=== PATIENT | female | born 1960 | race Caucasian/White ===

== ENCOUNTER → 2017-01-02 | Outpatient (CLI) | payer BC ==
[~2017-01-02] MED LIST: ACTOS 45 MG; AMR2 PO; ASPCH81 PO; AVN4 PO; CRS10 PO; GENUVIA PO; GLC500 PO; LISI-725 PO; MULT-506 PO
[2017-01-03 06:15] LABS: ESTIMATED AVERAGE GLUCOSE 206 mg/dl; HA1C FLAG Normal (Normal)
== END | disposition home or self-care (01) ==
LOC: C.LAB1850 15:36
PROVIDERS: ATTEND Nurse Practitioner Family
DX: E11.65 Type 2 diabetes mellitus with hyperglycemia (principal)

== ENCOUNTER → 2017-02-28 | Outpatient (CLI) | payer BC ==
--- NOTE | 2017-02-28 12:00 | DIAGNOSTIC IMAGING REPORT ---
R HAND MIN 3 VIEWS ROUTINE CLINICAL HISTORY: 56 years-old Female presenting with M79.644 pain in the right fingers. TECHNIQUE: Frontal, oblique, and lateral views of the right hand were obtained. COMPARISON: None. FINDINGS: Degenerative changes of the first carpometacarpal articulation suggested. No acute fracture or malalignment. No radiographic soft tissue abnormality. IMPRESSION: No acute osseous injury. Degenerative changes above. Electronically signed by: Isidro Romero M.D. 02/28/2017 11:59 AM Dictated Date/Time: 02/28/2017 11:53 AM
== END | disposition home or self-care (01) ==
LOC: C.RAD1850 11:36
PROVIDERS: ATTEND Physician Assistant
DX: M79.644 Pain in right finger(s) (principal)

== ENCOUNTER 2017-04-15 12:01 | Emergency (ER) | payer BC ==
[~2017-04-15] VITALS: Ht 167.6 cm; Wt 108.9 kg
[2017-04-15 12:08] VITALS: TEMP 37.3; Ht 167.6 cm; Wt 108.9 kg
[2017-04-15] MEDS ORDERED: INSU100I2 SQ (12:21)
[2017-04-15] MEDS ORDERED: HMLIS SQ ×2 (12:21)
[2017-04-15] MEDS ORDERED: CZR50 PO (12:21)
[2017-04-15] MEDS ORDERED: INSU1INJ41 SQ (12:21)
[2017-04-15] MEDS ORDERED: INSU1.2I SQ (12:21)
[2017-04-15] MEDS ORDERED: METF1000 PO (12:21)
[2017-04-15] MEDS ORDERED: HYDR5SYP11 PO (12:23)
[2017-04-15] MEDS ORDERED: ALBUT/IPRATROP 3MG/0.5MG NEB 3 ML VIAL INH STA (12:42)
--- NOTE | 2017-04-15 13:09 | DIAGNOSTIC IMAGING REPORT ---
CHEST 2 VIEWS ROUTINE CLINICAL HISTORY: cough FEVER COMPARISON STUDY: No previous studies for comparison. FINDINGS: The cardiac and mediastinal contours are normal. There is no evidence of focal pulmonary consolidation. There is no evidence of failure. No pleural effusions are visualized.[ A density at the level the left cardiophrenic angle, likely represents a combination of fat pad and atelectatic change. IMPRESSION: No active disease in the chest. Electronically signed by: Jesse Hernandez M.D. 04/15/2017 1:08 PM Dictated Date/Time: 04/15/2017 1:08 PM
[2017-04-15] MEDS ORDERED: IPRA1AER2 INH (14:01)
[2017-04-15] MEDS ORDERED: BENZ1CAP90 PO (14:01)
[2017-04-15] MEDS ORDERED: ONDA4TAB10 SL (14:01)
--- NOTE | 2017-04-15 14:04 | EMERGENCY ROOM VISIT NOTE ---
History First contact with patient: 12:19 Chief Complaint: SINUS CONGESTION/PRESSURE Stated Complaint: FEVER,HEADACHE,COUGH,POST NASAL DRIP Nursing Triage Summary: patient was treated for a sinus infection two weeks ago and was on antibiotics which were finished a week ago. felt better for two days then she was sick again. states she has congestion and head ache with cough. low grade fever. History of Present Illness The patient is a 57 year old female who presents to the Emergency Room with complaints of cough, runny nose, headache, low-grade fever, and sinus pressure. The patient states the symptoms have been going on for the past 2 days. She does report history of sinusitis for the past 3 months intermittently. She has been on 3 courses of antibiotics since December. The patient was most recently on an antibiotic for a sinus infection which she completed a week ago. She states she felt better for a few days, then began feeling sick again. She states the fever began 2 days ago, but states the highest documented temperature was 99.8F. She states for the past 2 days, her coughing has been worsening, and she is sneezing. She has been taking cough syrup with codeine on occasion to help her sleep at night. She states this does help minimally. She did have one episode of emesis associated with coughing. 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 The patient states her PCP does not want to continue to prescribe antibiotics due to possible C. difficile. The patient has not seen an ear nose and throat provider. The patient did receive a flu vaccination this year, and has not been exposed to the flu that she knows of. She denies any otalgia, significant sore throat, coughing up sputum or blood, purulent drainage from the nose, abdominal pain, chest pain, dyspnea, or other associated symptoms. Review of Systems A complete 10 point review of systems was reviewed with the patient with pertinent positives and negatives as per history of present illness. All else were negative. Social History Smoking Status: Former Smoker Current/Historical Medications Scheduled Aspirin (Aspirin Tab-Chewable *), 1 TAB PO DAILY Benzonatate (Tessalon Perles), 200 MG PO TID Insulin Glargine (Toujeo Solostar), 36 UNITS SQ HS Insulin Glargine-Lixisenatide (Soliqua 100/33 100-33 Unt-Mcg/ml), 60 UNITS SQ HS Insulin Human Lispro (Humalog Kwikpen), 8 UNITS SQ QAM Insulin Human Lispro (Humalog Kwikpen), 32 UNITS SQ HS Insulin Lispro (Human) (Humalog Kwikpen), 22 UNITS SQ QPM Ipratropium-Albuterol (Combivent Respimat), 1 PUFFS INH QID Losartan Potassium (Losartan Potassium), 50 MG PO DAILY Metformin Hcl (Glucophage), 1,000 MG PO BID Multivitamin (Multivitamin), 1 TAB PO DAILY Ondasetron Odt (Zofran Odt), 4 MG SL Q6H Rosuvastatin Calcium (Crestor *), 10 MG PO DAILY Scheduled PRN Hydrocodone W/ Homatropine (Hycodan 5/1.5MG 5 Ml), 1 TSP PO Q4H PRN for Cough Physical Exam Vital Signs Date Time Temp Pulse Resp B/P (MAP) Pulse Ox O2 Delivery O2 Flow Rate FiO2 04/15/17 14:16 103 22 176/95 96 04/15/17 12:11 95 Room Air 04/15/17 12:08 37.3 105 20 155/85 95 Room Air Physical Exam VITALS: Vitals are noted on the nurse's note and reviewed by myself. Vital signs stable. GENERAL: This is a 57-year-old white female, in no acute distress, nondiaphoretic, well-developed well-nourished. SKIN: The skin was without rashes, erythema, edema, or bruising. There is no tenting of the skin. Capillary reflex less than 2 seconds. HEAD: Normocephalic atraumatic. EARS: External auditory canals clear, tympanic membranes pearly smith without erythema or effusion bilaterally. EYES: Pupils equal round and reactive to light and accommodation. Conjunctivae without injection, sclerae without icterus. Extraocular movements intact. NOSE: Patent, turbinates without inflammation. Mild rhinorrhea noted. No purulent drainage. Sinus tenderness on the right. MOUTH: Mucous membranes moist. Tonsils are not enlarged. Pharynx without erythema or exudate. Uvula midline. Airway patent. Tongue does not deviate. NECK: Supple without nuchal rigidity. No lymphadenopathy. No thyromegaly. Cervical spine is nontender. No JVD. HEART: Regular rate and rhythm without murmurs gallops or rubs. LUNGS: Clear to auscultation bilaterally without wheezes, rales or rhonchi. The patient does have a raspy sounding cough, and is finding it difficult to stop coughing. No dullness to percussion. No retractions or accessory muscle use. ABDOMEN: Positive bowel sounds x 4. Normal tympanic percussion. Soft, nontender, without masses or organomegaly. Shook sign negative. No guarding or rebound tenderness. MUSCULOSKELETAL: No muscle atrophy, erythema, or edema noted. Full range of motion without joint tenderness in all extremities. No tenderness to palpation. Normal gait. Strength 5/5 throughout. NEURO: Patient was alert and oriented to person place and time. Normal sensation to light and sharp touch. Deep tendon reflexes 2+ throughout. No focal neurological deficits. Medical Decision & Procedures ER Provider Diagnostic Interpretation: Labs positive for influenza A, negative for influenza B. CHEST 2 VIEWS ROUTINE CLINICAL HISTORY: cough FEVER COMPARISON STUDY: No previous studies for comparison. FINDINGS: The cardiac and mediastinal contours are normal. There is no evidence of focal pulmonary consolidation. There is no evidence of failure. No pleural effusions are visualized.[ A density at the level the left cardiophrenic angle, likely represents a combination of fat pad and atelectatic change. IMPRESSION: No active disease in the chest. Electronically signed by: Jesse Hernandez M.D. 04/15/2017 1:08 PM Dictated Date/Time: 04/15/2017 1:08 PM Laboratory Results Test 04/15/17 12:45 Influenza Type A Antigen POS for Influ A (NEG) Influenza Type B Antigen Neg for Influ B (NEG) Medications Administered Medications (Trade) Dose Ordered Sig/Peggy Route Start Time Stop Time Status Last Admin Dose Admin Albuterol/ Ipratropium (Duoneb) 3 ml NOW STAT INH 04/15/17 12:42 04/15/17 12:43 DC 04/15/17 12:48 3 ML Medical Decision The patient was seen environment as above. She has been ill for several months , but states symptoms began worsening approximately 2 days ago. The patient has had no imaging completed. She did receive a flu vaccination, however her symptoms do sound very suspicious for influenza, which could be why her symptoms worsened after antibiotics. Chest x-ray was insignificant for ammonia. Influenza testing was positive for influenza type A. I did discuss these findings with the patient at bedside. I discussed with her that influenza is viral and antibiotics will not treat viral illness. I provided her with a nebulizer treatment, and she states she was feeling significantly better. The patient was provided with an inhaler and cough medication to help with her symptoms. I had a long discussion with her at bedside regarding the use of OTC medications for her symptoms. The patient was in agreement with the assessment and plan. I did discuss follow-up with her PCP due to the facial tenderness. I encouraged her to seek care by an ear nose and throat provider especially for her chronic sinusitis. The patient was encouraged to return to the emergency department for. The drainage from the nose or sinuses, worsening sinus pressure, or fever which does not respond to OTC medication. Differential diagnosis includes acute sinusitis, influenza, bronchitis, pneumonia, upper respiratory infection, abscess of sinus cavity, malignancy, and others Medication Reconcilliation Current Medication List: was personally reviewed by me Blood Pressure Screening Patient's blood pressure: Elevated blood pressure Blood pressure disposition: Elevated BP felt to be situational Impression Primary Impression: Influenza A Departure Information Dispostion Home / Self-Care Condition GOOD Prescriptions Ondasetron Odt (ZOFRAN ODT) 4 Mg Tab 4 MG SL Q6H for Nausea, #6 TAB Prov: Dora Leo PA-C 04/15/17 Ipratropium-Albuterol (COMBIVENT RESPIMAT) 1 Aer Aer 1 PUFFS INH QID, #1 INH Prov: Dora Leo PA-C 04/15/17 Benzonatate (Tessalon Perles) 200 Mg Cap 200 MG PO TID for 10 Days, #30 CAP Prov: Dora Leo PA-C 04/15/17 Referrals Teena Tracy M.D. (PCP) Patient Instructions ED Flu, My [facility] Additional Instructions You were seen and evaluated in the emergency department today for a influenza. This is viral in nature. As discussed, antibiotics will not treat viral illness. You have been provided with a combivent inhaler to use for wheezing or difficulty breathing. Use this inhaler 1 puffs every 6 hours as needed. If you find that your symptoms are not improving with the use of the inhaler, or if you find that you need to use the inhaler longer than 1 week, return to the ED or follow-up with your PCP. You have been given benzonatate (Tessalon Pearles) to be used for coughing. These should be taken 1 capsule up to 3 times per day as needed for coughing. Do not take this medication more than prescribed. You may use this medication in addition to OTC cough medications. You have been prescribed Zofran to be used for any nausea or vomiting. Take as prescribed. For your sore throat, you may use a 1:1 mixture of liquid Benadryl and liquid Maalox. Gargle and spit this mixture. It will help to soothe the throat and provide some relief. Drink warm tea with honey and lemon, as this will also help to soothe the throat. Gargle with salt water frequently. As discussed, you should take OTC Mucinex and/or Sudafed for your symptoms. Please do not exceed the recommended daily dosages. Ibuprofen(Motrin, Advil) may be used for fever or pain. Use 600mg every six hours as needed. Take with food. Avoid using more than 2400mg in a 24 hour period. Do not use 2400mg per day for more than three consecutive days without physician direction. Prolonged inappropriate use can lead to stomach upset or ulcers. This medication will help with the swelling in your sinuses. (AND/OR) Acetaminophen(Tylenol) may be used for fever or pain. Use 1000mg every six hours as needed. Avoid using more than 3000mg in a 24 hour period. For congestion, you may use Flonase OTC. You may want to consider zinc, echinacea, and vitamin C to help boost your immunity. Please get plenty of rest and drink plenty of fluids. Please return or follow-up with your PCP in 1 week if you are not experiencing any improvement in your symptoms. As discussed, you can expect to feel ill for at least 10 days. Please avoid interaction with other people while ill, as you can easily spread influenza.Please especially avoid contact with immunocompromised patients, women, or small children. Return to the emergency department for coughing up blood, difficulty breathing, chest pain, worsening symptoms, or for other concerns. Work Instructions Return To Work: 1 week
[2017-04-15 14:16] VITALS: BP 176/95; PULSE 103; O2SAT 96
== END 2017-04-15 14:17 | disposition home or self-care (01) ==
LOC: C.EDB 12:02 → C.EDD 14:17
DX: J11.1 Influenza due to unidentified influenza virus with other respiratory manifestations (principal); R51 Headache; J32.9 Chronic sinusitis, unspecified; Z79.82 Long term (current) use of aspirin; Z79.4 Long term (current) use of insulin; Z79.84 Long term (current) use of oral hypoglycemic drugs

== ENCOUNTER → 2017-12-03 | Outpatient (CLI) | payer OTHER ==
[~2017-12-03] MED LIST changes: -ACTOS 45 MG; -AMR2 PO; -AVN4 PO; +CZR50 PO; -GENUVIA PO; -GLC500 PO; +HMLIS SQ; +HYDR5SYP11 PO; +INSU1.2I SQ; +INSU100I2 SQ; +INSU1INJ41 SQ; -LISI-725 PO; +METF1000 PO
[2017-12-03 13:47] LABS: BLOOD UREA NITROGEN 16 mg/dl (7-18); CALCIUM 9.4 mg/dl (8.5-10.1); CARBON DIOXIDE 23 mmol/L (21-32); CREATININE 1.01 mg/dl (0.60-1.20); GLUCOSE 157 mg/dl (70-99); POTASSIUM 4.4 mmol/L (3.5-5.1); SODIUM 139 mmol/L (136-145)
== END | disposition home or self-care (01) ==
LOC: C.LAB1850 11:38
PROVIDERS: ATTEND Nurse Practitioner Family
DX: E78.5 Hyperlipidemia, unspecified (principal); E11.65 Type 2 diabetes mellitus with hyperglycemia

== ENCOUNTER 2022-02-07 23:17 | Inpatient (IN) ==
[2022-02-08] LABS: Basophils # (auto) 0.08 K/uL (0-0.2); Basophils % (auto) 0.6 %; Eosinophils # (auto) 0.05 K/uL (0-0.50); Eosinophils % (auto) 0.3 %; Hematocrit (blood only) 38.6 % (34.1-44.9); Hemoglobin 12.5 g/dl (12.0-16.0); Immature Granulocytes # (auto) 0.07 K/uL (0.00-0.02); Immature Granulocytes % (auto) 0.5 %; Lymphocytes # (auto) 1.68 K/uL (1.2-3.4); Lymphocytes % (auto) 11.6 %; Mean Corpuscular Hemoglobin 26.7 pg (25.0-34.0); Mean Corpuscular Hgb Conc 32.4 g/dL (32.0-36.0); Mean Corpuscular Volume 82.3 fL (80.0-100.0); Mean Platelet Volume 9.6 fL (9.4-12.3); Monocytes % (auto) 5.5 %; Neutrophils # (auto) 11.82 K/uL (1.4-6.5); Neutrophils % (auto) 81.5 %; Platelet Count 117 K/uL (130-400); RDW Coefficient of Variation 14.9 % (11.5-14.5); RDW Standard Deviation 44.5 fL (36.4-46.3); Red Blood Count 4.69 M/uL (3.93-5.22)
[2022-02-08 00:06] LABS: iSTAT Creatinine 1.5 mg/dl (0.6-1.3); iSTAT Hemoglobin 12.9 g/dl (12.0-16.0); iSTAT Ionized Calcium 1.27 mmol/l (1.12-1.32); iSTAT Potassium 4.6 mmol/L (3.3-5.0)
[2022-02-08 00:19] LABS: Albumin Globulin Ratio 1.4 (0.9-2); Albumin Level 4.2 gm/dl (3.4-5.0); BUN Creatinine Ratio 14.8 (10-20); Bilirubin,Total 0.4 mg/dl (0.2-1.0); Calcium 9.8 mg/dl (8.5-10.1); Creatinine Clr Calc Pharmacy 52.6 ml/min; Est GFR (Non-African American) 36.3 ml/min; Globulin 2.9 gm/dl (2.5-4.0); Potassium 4.4 mmol/L (3.5-5.1); Total Protein 7.1 gm/dl (6.0-8.3)
[2022-02-08 01:33] LABS: INR 1.1 (0.9-1.1); Prothrombin Time 11.5 Seconds (9.0-12.0)
[2022-02-08 01:54] LABS: Influenza A virus by PCR Negative (Neg); Influenza B virus by PCR Negative (Neg); RSV by PCR Negative (Neg); SARS CoV2 RNA(COVID-19) InHosp NEGATIVE (Negative)
[2022-02-08] MEDS ORDERED: ACETAMINOPHEN 1,000 MG/100 ML VIAL IV STA (03:34)
[2022-02-08] MEDS ORDERED: SODIUM CHLORIDE 0.9% 1000ML 1,000 ML IV SCH (03:45)
[2022-02-08] MEDS ORDERED: OPTIRAY 320 500ml IV ONE (04:09)
[2022-02-08] MEDS ORDERED: Heparin IV Adult Wt-Based Standard WITH Bolus Protocol IV STA (05:51)
--- NOTE | 2022-02-08 05:53 | Emergency Department Note ---
History of Present Illness General Chief complaint: Illness Stated complaint: Dizziness, Hyperglycemia Time Seen by Provider: 02/08/22 03:04 Source: patient Mode of arrival: ambulatory Limitations: no limitations History of Present Illness Provider complaint: Fatigue, cough, flulike symptoms Maximum Pain Intensity: 5 This is a 61-year-old female presents emergency department complaining of flulike symptoms, fatigue, cough, shortness of breath and chest pain. Patient states over the weekend she began having fevers, chills, fatigue, myalgia and thought she was coming down with an illness. She states she had accompanying nasal congestion, rhinorrhea, mild sore throat. She states tonight she went to get in the shower and began having shortness of breath, chest pain, nausea, and felt as though she was going to pass out. She states she got out of the shower and lay down and the nausea and dizziness improved, however she still felt chest pain and shortness of breath. On arrival here patient was noted to be hypoxic and tachycardic and was placed in room on oxygen. Patient admits to likely positive sick contacts recently. Patient states she has previously had "a mild ID". 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 She states since being sick her blood sugars have been high. No prior history of asthma or COPD. Home Medications Medication Instructions Recorded Confirmed Type aspirin 81 mg tablet,delayed 81 mg PO HS 12/31/18 02/08/22 History release escitalopram oxalate 10 mg tablet 10 mg PO HS 12/31/18 02/08/22 History Dexcom G6 Client Business Manager (blood-glucose #1 ea 09/17/19 02/02/22 Rx meter,continuous) cyanocobalamin (vitamin B-12) 1,000 mcg PO QAM 09/29/20 02/08/22 History 1,000 mcg tablet (Vitamin B-12) Dexcom G6 Transmitter #1 ea 02/21/21 02/02/22 Rx (blood-glucose transmitter) metoprolol succinate 25 mg capsule 25 mg PO DAILY 04/14/21 02/08/22 History sprinkle, ext. release 24 hr rosuvastatin 5 mg tablet 5 mg PO HS #90 tabs 04/25/21 02/08/22 Rx Dexcom G6 Sensor (blood-glucose #3 ea 05/16/21 02/02/22 Rx sensor) insulin degludec 200 unit/mL (3 90 unit (0.45 mL) subcut HS #18 mL 07/18/21 02/08/22 Rx mL) subcutaneous pen (Tresiba FlexTouch U-200 insulin) pen needle, diabetic 32 gauge x #200 ea 07/21/21 02/02/22 Rx 5/32" (BD Ultra-Fine Jessi Pen Needle) fenofibrate nanocrystallized 145 145 mg PO DAILY #90 tabs 09/02/21 02/08/22 Rx mg tablet levothyroxine 100 mcg tablet 100 mcg PO DAILY #30 tabs 10/31/21 02/08/22 Rx insulin NPH isoph U-100 human 100 30 unit (0.3 mL) subcut QAM 30 11/07/21 Rx unit/mL (3 mL) subcutaneous pen days #15 mL (Novolin N Flexpen) Accu-Chek Fastclix Lancet Drum #102 ea 11/21/21 02/02/22 Rx (lancets) liraglutide 0.6 mg/0.1 mL (18 mg/3 1.2 mg (0.2 mL) subcut DAILY #6 mL 01/09/22 02/08/22 Rx mL) subcutaneous pen injector (Victoza 2-Marshal) metformin 500 mg tablet,extended 1,000 mg PO BID #180 tabs 02/01/22 02/08/22 Rx release 24 hr blood sugar diagnostic (Accu-Chek #100 ea 02/02/22 02/02/22 Rx Guide test strips) losartan 100 mg tablet 100 mg PO DAILY #30 tabs 02/02/22 02/08/22 Rx insulin aspart U-100 100 unit/mL 100 unit subcut DIRECTED 02/08/22 02/08/22 History (3 mL) subcutaneous pen (Novolog Flexpen U-100 Insulin aspart) Allergies Allergy/AdvReac Type Severity Reaction Status Date / Time latex Allergy Intermediate contact Verified 02/08/22 02:03 dermatitis Penicillins Allergy Mild Rash Verified 02/08/22 02:03 Past Med/Surg History Medical History Depression Diabetes type 2, uncontrolled DVT (deep venous thrombosis) hx of left leg 2016--unknown cause Dyslipidemia HTN (hypertension) Hypertriglyceridemia Hypothyroidism Microalbuminuria due to type 2 diabetes mellitus Morbid obesity with BMI of 40.0-44.9, adult Obesity Osteoarthritis Postmenopausal status (age-related) (natural) Right knee DJD Surgical History H/O section (~1996) H/O eye surgery orbital fx repair--hardware in place around right eye History of colonoscopy History of wisdom tooth extraction Hx of cholecystectomy Family History Grandfather (Paternal) Colorectal cancer Brother Diabetes Grandfather No problems noted. Father Diabetes Mother Ovarian cancer, Onset Age: 60 still living Other FHx: hypertension Family history of diabetes mellitus No family history of adverse response to anesthesia Denies family history of Breast cancer Social History Smoking Status: Former smoker Second Hand Exposure: No; Hx Alcohol Use: No Hx Substance Use: No Preferred Language: German Communication Ability: Effective Engineer And Geologist Required: No Beliefs That Will Affect Care: None marital status: Current Living Situation: Spouse Current Living Situation Comment: Lives with and son Feels Safe at Home: Yes Assistive Devices: Glasses Review of Systems A total of 10 systems reviewed and were otherwise negative All systems reviewed & are unremarkable except as noted in HPI & below Physical Exam Vital Signs Vital Signs - 24 hr 02/07/22 23:33 02/07/22 23:11 02/08/22 01:13 Temperature 36.8 C Temperature Source Oral Pulse Rate 116 H 118 H Pulse Rate from SpO2 Sensor Pulse Rhythm Regular Respiratory Rate 24 21 Respiratory Effort / Characteristics Short of Breath Respiratory Depth Shallow Respiratory Pattern Rapid/Shallow Blood Pressure 122/82 Blood Pressure Mean 95 Pulse Oximetry 91 84 L 92 Oxygen Delivery Method Nasal Cannula Room Air Nasal Cannula Oxygen Flow Rate 2 3 Sepsis Recent Fever Within 48 Hours Yes Sepsis New/Unexplained Change in Mental Status No Sepsis Action Taken by Nursing No Action Required 02/07/22 23:28 02/07/22 23:30 02/07/22 23:50 Temperature Temperature Source Pulse Rate 120 H 118 H 119 H Pulse Rate from SpO2 Sensor Pulse Rhythm Respiratory Rate 13 21 26 H Respiratory Effort / Characteristics Respiratory Depth Respiratory Pattern Blood Pressure 114/89 106/74 108/66 Blood Pressure Mean 97 84 80 Pulse Oximetry 92 91 91 Oxygen Delivery Method Nasal Cannula Oxygen Flow Rate 2 Sepsis Recent Fever Within 48 Hours Sepsis New/Unexplained Change in Mental Status Sepsis Action Taken by Nursing 02/08/22 00:00 02/08/22 00:10 02/08/22 00:40 Temperature Temperature Source Pulse Rate 118 H 115 H 112 H Pulse Rate from SpO2 Sensor Pulse Rhythm Respiratory Rate 26 H 23 22 Respiratory Effort / Characteristics Respiratory Depth Respiratory Pattern Blood Pressure 104/73 122/82 110/88 Blood Pressure Mean 83 95 95 Pulse Oximetry 90 90 87 L Oxygen Delivery Method Nasal Cannula Oxygen Flow Rate 2 Sepsis Recent Fever Within 48 Hours Sepsis New/Unexplained Change in Mental Status Sepsis Action Taken by Nursing 02/08/22 00:50 02/08/22 01:00 02/08/22 01:10 Temperature Temperature Source Pulse Rate 112 H 110 H 110 H Pulse Rate from SpO2 Sensor 110 H Pulse Rhythm Respiratory Rate 22 26 H 20 Respiratory Effort / Characteristics Respiratory Depth Respiratory Pattern Blood Pressure 98/78 L 93/76 L Blood Pressure Mean 84 81 Pulse Oximetry 90 88 L 92 Oxygen Delivery Method Nasal Cannula Nasal Cannula Oxygen Flow Rate 2 2 Sepsis Recent Fever Within 48 Hours Sepsis New/Unexplained Change in Mental Status Sepsis Action Taken by Nursing 02/08/22 01:20 02/08/22 01:31 02/08/22 01:40 Temperature Temperature Source Pulse Rate 108 H 110 H 107 H Pulse Rate from SpO2 Sensor Pulse Rhythm Respiratory Rate 21 23 24 Respiratory Effort / Characteristics Respiratory Depth Respiratory Pattern Blood Pressure 112/82 117/81 101/72 Blood Pressure Mean 92 93 81 Pulse Oximetry 92 90 91 Oxygen Delivery Method Nasal Cannula Nasal Cannula Nasal Cannula Oxygen Flow Rate 3 3 3 Sepsis Recent Fever Within 48 Hours Sepsis New/Unexplained Change in Mental Status Sepsis Action Taken by Nursing 02/08/22 01:50 02/08/22 02:00 02/08/22 02:10 Temperature Temperature Source Pulse Rate 106 H 105 H 103 H Pulse Rate from SpO2 Sensor Pulse Rhythm Respiratory Rate 24 23 20 Respiratory Effort / Characteristics Respiratory Depth Respiratory Pattern Blood Pressure 127/80 106/62 98/84 L Blood Pressure Mean 95 76 88 Pulse Oximetry 91 94 94 Oxygen Delivery Method Nasal Cannula Nasal Cannula Nasal Cannula Oxygen Flow Rate 3 3 3 Sepsis Recent Fever Within 48 Hours Sepsis New/Unexplained Change in Mental Status Sepsis Action Taken by Nursing 02/08/22 02:30 02/08/22 02:30 02/08/22 03:00 Temperature Temperature Source Pulse Rate 105 H 102 H 103 H Pulse Rate from SpO2 Sensor 103 H Pulse Rhythm Respiratory Rate 20 22 22 Respiratory Effort / Characteristics Respiratory Depth Respiratory Pattern Blood Pressure 108/87 110/75 Blood Pressure Mean 94 86 Pulse Oximetry 94 94 95 Oxygen Delivery Method Nasal Cannula Oxygen Flow Rate 3 Sepsis Recent Fever Within 48 Hours Sepsis New/Unexplained Change in Mental Status Sepsis Action Taken by Nursing 02/08/22 03:30 02/08/22 04:15 02/08/22 04:30 Temperature Temperature Source Pulse Rate 99 H 97 H 96 H Pulse Rate from SpO2 Sensor 96 H Pulse Rhythm Respiratory Rate 16 19 17 Respiratory Effort / Characteristics Respiratory Depth Respiratory Pattern Blood Pressure 104/83 115/78 135/103 H Blood Pressure Mean 90 90 113 Pulse Oximetry 94 95 97 Oxygen Delivery Method Oxygen Flow Rate Sepsis Recent Fever Within 48 Hours Sepsis New/Unexplained Change in Mental Status Sepsis Action Taken by Nursing 02/08/22 05:00 02/08/22 05:30 02/08/22 06:00 Temperature Temperature Source Pulse Rate 96 H 95 H 86 Pulse Rate from SpO2 Sensor Pulse Rhythm Respiratory Rate 22 24 20 Respiratory Effort / Characteristics Respiratory Depth Respiratory Pattern Blood Pressure 148/112 H 115/88 140/93 Blood Pressure Mean 124 97 108 Pulse Oximetry 91 92 94 Oxygen Delivery Method Nasal Cannula Nasal Cannula Nasal Cannula Oxygen Flow Rate 3 3 3 Sepsis Recent Fever Within 48 Hours Sepsis New/Unexplained Change in Mental Status Sepsis Action Taken by Nursing GENERAL: alert, unwell appearing, well nourished, no distress, non-toxic, BMI>44 EYE EXAM: normal conjunctiva, PERRL and EOM's grossly intact OROPHARYNX: no exudate, no erythema, lips, buccal mucosa, and tongue normal and mucous membranes are moist NECK: supple, no nuchal rigidity, no adenopathy, non-tender LUNGS: Clear to auscultation. Normal chest wall mechanics, no w/r/r, slight conversational dyspnea HEART: no murmurs, S1 normal and S2 normal ABDOMEN: abdomen soft, non-tender, normo-active bowel sounds, no masses, no rebound or guarding. BACK: Back is symmetrical on inspection and there is no deformity, no midline tenderness, no CVA tenderness. SKIN: no rashes and no bruising UPPER EXTREMITIES: upper extremities are grossly normal. FROM, nml pulses b/l. LOWER EXTREMITIES: No pitting edema. FROM, nml pulses b/l. Scar to left lower extremity along the anterior tib/fib region which patient states was residual from a prior DVT many years ago. NEURO EXAM: Normal sensorium, cranial nerves II-XII grossly intact, normal speech, no gross weakness of arms, no gross weakness of legs. No pronator drift. Finger to nose intact. Gross sensation intact. Course Course 05: Pt updated on results. Vital signs stable, tachycardia improved. Administered Medications Aspirin (Aspirin 81 Mg Ectab) 81 mg PO HS REPLACED BY [facility] Stop: 03/10/22 20:59 Last Admin: 02/09/22 20:13 Dose: 81 mg Documented By: Admin: 02/08/22 21:33 Dose: 81 mg Documented By: JORDEN Escitalopram Oxalate (Escitalopram Oxalate 10 Mg Tab) 10 mg PO HS REPLACED BY [facility] Stop: 03/10/22 20:59 Last Admin: 02/09/22 20:12 Dose: 10 mg Documented By: Admin: 02/08/22 21:33 Dose: 10 mg Documented By: JORDEN Fenofibrate (Fenofibrate Nanocrystallized 145 Mg Tablet) 145 mg PO DAILY REPLACED BY [facility] Stop: 03/10/22 08:59 Last Admin: 02/09/22 08:24 Dose: 145 mg Documented By: Admin: 02/08/22 09:31 Dose: 145 mg Documented By: GAYATHRI Heparin Sodium/Dextrose (Heparin Sodium/Dextrose) 25,000 units in 500 mls @ 36 mls/hr IV .[id number] REPLACED BY [facility]; Protocol Stop: 03/10/22 06:14 Last Admin: 02/10/22 00:57 Dose: 1,800 units/hr, 36 mls/hr Documented By: JORDEN Co-signed By: TIERRA Titration: 02/10/22 00:57 Dose: 1,800 units/hr, 36 mls/hr Documented By: JORDEN Co-signed By: TIERRA Titration: 02/09/22 19:28 Dose: 1,800 units/hr, 36 mls/hr Documented By: JORDEN Co-signed By: AM Admin: 02/09/22 12:24 Dose: 1,800 units/hr, 36 mls/hr Documented By: AM Co-signed By: BOBBY Titration: 02/09/22 11:47 Dose: 1,800 units/hr, 36 mls/hr Documented By: AM Co-signed By: BOBBY Titration: 02/09/22 08:48 Dose: 1,800 units/hr, 36 mls/hr Documented By: AM Co-signed By: JOHN Titration: 02/09/22 06:53 Dose: 1,800 units/hr, 36 mls/hr Documented By: HFS Co-signed By: AM Titration: 02/09/22 01:17 Dose: 1,800 units/hr, 36 mls/hr Documented By: HFS Co-signed By: SB Admin: 02/08/22 21:35 Dose: 1,650 units/hr, 33 mls/hr Documented By: HFS Co-signed By: HSM Titration: 02/08/22 21:35 Dose: 1,650 units/hr, 33 mls/hr Documented By: HFS Co-signed By: HSM Titration: 02/08/22 18:57 Dose: 1,650 units/hr, 33 mls/hr Documented By: HFS Co-signed By: AM Titration: 02/08/22 17:42 Dose: 1,650 units/hr, 33 mls/hr Documented By: KV Co-signed By: BOBBY(2) Admin: 02/08/22 06:24 Dose: 1,550 units/hr, 31 mls/hr Documented By: HERRERA Co-signed By: RAHAT Sodium Chloride (Nss 1000ml) 1,000 mls @ 80 mls/hr IV .[id number] REPLACED BY [facility] Stop: 03/11/22 07:29 Last Admin: 02/09/22 20:10 Dose: 80 mls/hr Documented By: Infusion: 02/09/22 20:10 Dose: 80 mls/hr Documented By: Admin: 02/09/22 07:42 Dose: 80 mls/hr Documented By: AM Insulin Aspart (Insulin Aspart Per Unit) 0 units SC ACHS STEFANIE Stop: 03/10/22 08:07 Last Admin: 02/09/22 20:13 Dose: 2 units Documented By: HFS Co-signed By: SUKHWINDER Admin: 02/09/22 17:21 Dose: 5 units Documented By: AM Co-signed By: JOHN Admin: 02/09/22 12:24 Dose: 6 units Documented By: AM Co-signed By: BOBBY Admin: 02/09/22 08:28 Dose: 4 units Documented By: AM Co-signed By: BOBBY Admin: 02/08/22 21:33 Dose: 4 units Documented By: JORDEN Co-signed By: KEIRY Admin: 02/08/22 19:22 Dose: 7 units Documented By: JORDEN Co-signed By: RICKEY Admin: 02/08/22 13:23 Dose: 5 units Documented By: GAYATHRI Co-signed By: HERIBERTO Admin: 02/08/22 09:40 Dose: 5 units Documented By: GAYATHRI Co-signed By: LUIS E Insulin Glargine (Lantus Per Unit Charge) 45 units SQ BID REPLACED BY [facility] Stop: 03/10/22 08:59 Last Admin: 02/09/22 20:14 Dose: 45 units Documented By: JORDEN Co-signed By: SUKHWINDER Admin: 02/09/22 08:29 Dose: 45 units Documented By: RICKEY Co-signed By: BOBBY Admin: 02/08/22 21:34 Dose: 45 units Documented By: JORDEN Co-signed By: KEIRY Admin: 02/08/22 09:42 Dose: 45 units Documented By: GAYATHRI Co-signed By: LUIS E Levothyroxine Sodium (Levothyroxine Sodium 100 Mcg Tablet) 100 mcg PO DAILY REPLACED BY [facility] Stop: 03/10/22 08:59 Last Admin: 02/09/22 07:44 Dose: 100 mcg Documented By: Admin: 02/08/22 09:31 Dose: 100 mcg Documented By: GAYATHRI Metoprolol Succinate (Metoprolol Succ 25mg Ext Rel Tab) 25 mg PO [facility] Stop: 03/11/22 09:04 Last Admin: 02/09/22 10:12 Dose: 25 mg Documented By: RICKEY Rosuvastatin Calcium (Rosuvastatin Calcium 5 Mg Tab) 5 mg PO [facility] Stop: 03/10/22 20:59 Last Admin: 02/09/22 20:12 Dose: 5 mg Documented By: Admin: 02/08/22 21:34 Dose: 5 mg Documented By: JORDEN Discontinued Medications Heparin Sodium (Porcine) (Heparin Sod (Porcine) 1000 Unit/Ml) 1 units IV NOW ONE Stop: 02/08/22 06:07 Last Admin: 02/08/22 06:24 Dose: 7,000 units Documented By: HERRERA Co-signed By: RAHAT Heparin Sodium/Dextrose (Heparin Iv Adult Wt-Based Standard With Bolus Protocol) 1 each IV NOW STA; Protocol Stop: 02/08/22 05:52 Last Admin: 02/08/22 06:33 Dose: Not Given Documented By: HERRERA Sodium Chloride (Nss 1000ml) 1,000 mls @ 125 mls/hr IV .Q8H STEFANIE Stop: 03/10/22 03:44 Last Infusion: 02/08/22 11:08 Dose: 0 mls/hr Documented By: Infusion: 02/08/22 11:06 Dose: 0 mls/hr Documented By: Admin: 02/08/22 03:39 Dose: 125 mls/hr Documented By: HERRERA Acetaminophen (Ofirmev) 1,000 mg in 100 mls @ 400 mls/hr IV NOW STA Stop: 02/08/22 03:48 Last Infusion: 02/08/22 07:41 Dose: 0 mls/hr Documented By: Admin: 02/08/22 04:33 Dose: 400 mls/hr Documented By: HERRERA Sodium Chloride (Nss) 500 mls @ 80 mls/hr IV .Q6H15M STEFANIE Stop: 03/10/22 09:29 Last Admin: 02/09/22 07:34 Dose: Not Given Documented By: Admin: 02/09/22 07:34 Dose: Not Given Documented By: Infusion: 02/09/22 07:33 Dose: 0 mls/hr Documented By: Admin: 02/08/22 17:23 Dose: 80 mls/hr Documented By: Infusion: 02/08/22 16:52 Dose: 80 mls/hr Documented By: Admin: 02/08/22 10:37 Dose: 80 mls/hr Documented By: GAYATHRI Influenza Virus Vaccine Quadrival (Fluarix Quadrivalent 0.5 Ml Syr) 0.5 ml IM .ONCE ONE Stop: 02/08/22 18:46 Last Admin: 02/08/22 21:31 Dose: 0.5 ml Documented By: JORDEN Ioversol (Optiray 320 500ml) 115 ml IV ONCE ONE Stop: 02/08/22 04:10 Last Admin: 02/08/22 04:09 Dose: 115 ml Documented By: [facility] Critical Care Time Critical Care Time: Yes Total Critical Care Time: 39 Critical care of 39 min performed to assess and manage high likelihood of life- threatening multiple PE's with hypoxia and RV strain, involving labs and imaging performed with assessment to evaluate multiple PE's with hypoxia and RV strain diagnosis with frequent reassessment. This time includes bedside time, treatment discussions with patient/family/consultants, documentation time and excludes procedure time. Medical Decision Making Differential Diagnosis Differential diagnoses includes but is not limited to pneumonia, bronchitis, COPD/Asthma exacerbation, pneumothorax, pulmonary embolism, congestive heart failure, acute coronary syndrome Medical Records Attestation: I reviewed the patient's medical records. Home Medications Current Medication List: was personally reviewed by me Laboratory Data Attestation: I reviewed the patient's lab results. Result diagrams: 02/09/22 06:45 02/09/22 06:45 Lab Results 02/07/22 02/07/22 02/07/22 Range/Units 23:43 23:43 23:43 WBC 14.50 H (4.8-10.8) K/ul RBC 4.69 (3.93-5.22) M/uL Hgb 12.5 (12.0-16.0) g/dl POC Hgb (12.0-16.0) g/dl Hct 38.6 (34.1-44.9) % POC Hct (37-47) % MCV 82.3 (80.0-100.0) fL MCH 26.7 (25.0-34.0) pg MCHC 32.4 (32.0-36.0) g/dL RDW Std Deviation 44.5 (36.4-46.3) fL RDW Coeff of Aren 14.9 H (11.5-14.5) % Plt Count 117 L (130-400) K/uL MPV 9.6 (9.4-12.3) fL Immature Gran % (Auto) 0.5 % Neut % (Auto) 81.5 % Lymph % (Auto) 11.6 % [place] % (Auto) 5.5 % Eos % (Auto) 0.3 % Baso % (Auto) 0.6 % Neut # (Auto) 11.82 H (1.4-6.5) K/uL Lymph # (Auto) 1.68 (1.2-3.4) K/uL [place] # (Auto) 0.80 (0.24-0.82) K/uL Eos # (Auto) 0.05 (0-0.50) K/uL Baso # (Auto) 0.08 (0-0.2) K/uL Immature Gran # (Auto) 0.07 H (0.00-0.02) K/uL PT 11.5 (9.0-12.0) Seconds INR 1.1 (0.9-1.1) POC Sodium (135-144) mmol/L Sodium 138 (136-145) mmol/L POC Potassium (3.3-5.0) mmol/L Potassium 4.4 (3.5-5.1) mmol/L POC Chloride (101-112) mmol/L Chloride 105 (98-107) mmol/L Carbon Dioxide 23 (21-32) mmol/L POC Total CO2 (24-31) mmol/L Anion Gap 10 (3-11) POC Anion Gap (16-25) mmol/L POC BUN (7-18) mg/dl BUN 23 (6-23) mg/dl Creatinine 1.55 H (0.6-1.2) mg/dl POC Creatinine (0.6-1.3) mg/dl Est Cr Clr Drug Dosing 52.6 ml/min Est GFR ( Amer) 42.0 ml/min Est GFR (Non-Af Amer) 36.3 ml/min BUN/Creatinine Ratio 14.8 (10-20) Glucose 191 H (70-99(Fasting)) mg/dl POC Glucose (70-99) mg/dl POC Glucose (other) (70-99) mg/dl Calcium 9.8 (8.5-10.1) mg/dl POC Ioniz Calcium Giovanna (1.12-1.32) mmol/l Total Bilirubin 0.4 (0.2-1.0) mg/dl AST 139 H (13-39) U/L ALT 109 H (7-52) U/L Alkaline Phosphatase 81 (34-104) U/L Troponin I High Sens 891.0 H* (0-14) pg/ml Total Protein 7.1 (6.0-8.3) gm/dl Albumin 4.2 (3.4-5.0) gm/dl Globulin 2.9 (2.5-4.0) gm/dl Albumin/Globulin Ratio 1.4 (0.9-2) Lipase 21 (11-82) U/L 02/07/22 02/07/22 Range/Units 23:52 23:52 WBC (4.8-10.8) K/ul RBC (3.93-5.22) M/uL Hgb (12.0-16.0) g/dl POC Hgb 12.9 (12.0-16.0) g/dl Hct (34.1-44.9) % POC Hct 38 (37-47) % MCV (80.0-100.0) fL MCH (25.0-34.0) pg MCHC (32.0-36.0) g/dL RDW Std Deviation (36.4-46.3) fL RDW Coeff of Aren (11.5-14.5) % Plt Count (130-400) K/uL MPV (9.4-12.3) fL Immature Gran % (Auto) % Neut % (Auto) % Lymph % (Auto) % [place] % (Auto) % Eos % (Auto) % Baso % (Auto) % Neut # (Auto) (1.4-6.5) K/uL Lymph # (Auto) (1.2-3.4) K/uL [place] # (Auto) (0.24-0.82) K/uL Eos # (Auto) (0-0.50) K/uL Baso # (Auto) (0-0.2) K/uL Immature Gran # (Auto) (0.00-0.02) K/uL PT (9.0-12.0) Seconds INR (0.9-1.1) POC Sodium 139 (135-144) mmol/L Sodium (136-145) mmol/L POC Potassium 4.6 (3.3-5.0) mmol/L Potassium (3.5-5.1) mmol/L POC Chloride 105 (101-112) mmol/L Chloride (98-107) mmol/L Carbon Dioxide (21-32) mmol/L POC Total CO2 23 L (24-31) mmol/L Anion Gap (3-11) POC Anion Gap 17.0 (16-25) mmol/L POC BUN 25 H (7-18) mg/dl BUN (6-23) mg/dl Creatinine (0.6-1.2) mg/dl POC Creatinine 1.5 H (0.6-1.3) mg/dl Est Cr Clr Drug Dosing ml/min Est GFR ( Amer) ml/min Est GFR (Non-Af Amer) ml/min BUN/Creatinine Ratio (10-20) Glucose (70-99(Fasting)) mg/dl POC Glucose 179 H (70-99) mg/dl POC Glucose (other) 196 H (70-99) mg/dl Calcium (8.5-10.1) mg/dl POC Ioniz Calcium Gi[place]anna 1.27 (1.12-1.32) mmol/l Total Bilirubin (0.2-1.0) mg/dl AST (13-39) U/L ALT (7-52) U/L Alkaline Phosphatase (34-104) U/L Troponin I High Sens (0-14) pg/ml Total Protein (6.0-8.3) gm/dl Albumin (3.4-5.0) gm/dl Globulin (2.5-4.0) gm/dl Albumin/Globulin Ratio (0.9-2) Lipase (11-82) U/L Imaging Data Radiologist's Impression: Chest CTA 02/08/22 03:33 CT ANGIOGRAPHY OF THE CHEST, PULMONARY EMBOLUS PROTOCOL CLINICAL HISTORY: Shortness of breath. Hypoxia. COMPARISON STUDY: Chest radiograph February 07, 2022. TECHNIQUE: Following IV administration of 115 mL of Optiray, helical axial images of the chest were obtained utilizing the pulmonary embolus protocol. Maximal intensity projections and sagittal and coronal reformats were viewed on an independent 3D workstation. IV contrast was administered without complication. Automated exposure control was utilized for the study. A dose lowering technique was utilized adhering to the principles of ALARA. CT DOSE: 822.47 mGy.cm FINDINGS: Extensive bilateral pulmonary emboli are noted. These include emboli within the distal right pulmonary artery. Nearly occlusive emboli within the right interlobar pulmonary artery is noted. There is dilatation of the right heart chambers with straightening of the interventricular septum. No pulmonary infarct is present. Several calcified granulomas within the lungs are present. There is no thoracic lymphadenopathy. No pericardial effusion is present. There is no pneumothorax or pleural effusion. Hepatic steatosis is incidentally noted. There are calcified granulomas within the spleen. IMPRESSION: Extensive bilateral pulmonary emboli with CT findings raising the possibility of right heart strain. ACT 112: Negative or not required by law. Electronically signed by: Tad Keen M.D. 02/08/2022 8:04 AM CTA chest: Indication: 61-year-old female with increased shortness of breath. Technique: Helical CT acquisition of the chest following the administration of IV contrast. 150 mL Optiray 320 intravenous contrast. High-resolution axial imaging as well as sagittal and coronal reformatted images are available. Comparison: Chest radiograph, 02/07/2022. Findings: No suspicious thyroid nodule. Lower neck is within normal limits. No mediastinal lymphadenopathy. Esophagus is within normal limits. Overall normal heart size. Right ventricle and right atrium are slightly enlarged. RV/LV ratio of 1.1. No pericardial effusion. No definite coronary artery calcifications. Timing of contrast bolus is adequate for evaluation of pulmonary embolism to the level of the segmental pulmonary arteries. Lungs have no consolidation. No pneumothorax or pleural effusion. Mild biapical pleural scarring. Airways are within normal limits. Diffuse hypoattenuation of the liver, consistent with steatosis. Punctate calcifications in the spleen consistent with sequelae of prior granulomatous disease. No acute osseous abnormality. Impression: 1. Multiple bilateral pulmonary emboli sparing only the left upper lobe. 2. Mild dilation of the right ventricle and mildly elevated RV/LV ratio, suggestive of right heart strain. Correlate clinically. Radiologist: Eldon Markham MD ECG Data Attestation: I personally reviewed and interpreted this ECG as follows: Indication: + chest pain and + SOB/dyspnea Rate (beats per minute): 117 Rhythm: + sinus tachycardia ECG Intervals/blocks: + Normal QRS and + Normal QT ECG [place]: + Left axis deviation ECG ST segments: + Nonspecific ST abnormalities MDM Narrative An order was placed for continuous cardiac monitoring. The monitor shows a rate of _107_ with _sinus tachycardia_ rhythm. This is a 61-year-old female presents due to concern for chest pain and increased shortness of breath as well as near syncope this evening. Patient with recent URI symptoms evolving over the last several days. On arrival to the emergency room patient noted to be tachycardic and hypoxic, she was placed on oxygen via nasal cannula with improvement in her condition. Patient presented on day of high volume and acuity and nursing staff did draw labs and start an IV on the patient prior to my evaluation. After significant bedside discussion, patient sent for CT angiography of the chest due to concern for other underlying pulmonary pathology such as pneumonia or pulmonary embolism due to prior history of DVT. Patient found to have multiple bilateral PEs with concern for right heart strain. Given significantly elevated troponin as noted on labs, I feel right heart strain is likely. Patient's heart rate did improve with improved oxygenation and IV fluids while here. She was started on heparin drip and case discussed with hospitalist for additional evaluation and management. Patient and at bedside made aware of all results and need for additional inpatient monitoring and treatment, they verbalized understanding and were in agreement with the plan. Impression & Plan Dyspnea, Hypoxia, Chest pain, Multiple pulmonary emboli, Elevated troponin Discharge Plan Visit Data Chief Complaint: Illness Stated Complaint: Dizziness, Hyperglycemia ED Provider: Catia Bagley Discharge Problem: Dyspnea, Hypoxia, Chest pain, Multiple pulmonary emboli, Elevated troponin Patient Disposition: Admitted As Inpatient Discharge Instructions Interventions: ED Discharge Assessment Last Done: 02/08/22 08:07
[2022-02-08] MEDS ORDERED: HEPARIN SOD (PORCINE) 1000 UNIT/ML IV ONE (06:06)
[2022-02-08] MEDS: HEPARIN SODIUM/DEXTROSE 25,000 UNITS/500 ML BAG IV SCH ×2 (06:24→21:35)
--- NOTE | 2022-02-08 06:25 | History & Physical Report ---
Date of Service February 08, 2022 Assessment & Plan (1) Pulmonary emboli: Plan: 61yo female with history of HTN, HP, DM and Obesity presents with progressive WOLF, near syncopal event this evening prior to arrival. Found to have bilateral PEs with evidence of right heart strain by CT. Patient tachycardic, hypotensive and hypoxic on arrival which has resolved with NSS at 125mL/hr and supplemental O2. Presently without chest pain or SOB. Did have prior LLE VTE in the past. Patient is Class V - Very high risk (129) points by PESI score using initial vital signs (tachycardia, hypotension, hypoxia). Now improved Shock index presently 0.7 - normal -Will admit to PCU -Check LLE doppler to assess for VTE, clot burden -Check 2D echo -Trend troponin -Continue heparin gtt with low threshold for thrombolytics should patient clinically decompensate (2) Type 2 diabetes mellitus, controlled: Plan: Fairly well controlled with last AtrU3L=9.3 on 09/01/21. Patient is on tirzepatide, Metformin, Liraglutide and insulin (NPH, Novolog and Degludec) as an outpatient -Lantus 45u BID -ISS -Check HgbA1C -Consider Pharmacy consultation to assist with blood sugar management (3) Hypothyroidism: Plan: Chronic. Stable. Last TSH 09/01/21 = 2.674 -Continue Synthroid 100mcg po daily (4) HTN (hypertension): Plan: Patient with low blood pressure on arrival, 93/76. Improved with maintenance fluids - NSS at 125mL/hr. Presently 129/77. Concerning with diagnosis of PE with possible heart strain. Also could be component of volume depletion given recent illness -Will hold antihypertensives for now, Metoprolol and Losartan -Continue to monitor (5) Dyslipidemia: Plan: Chronic -Continue Crestor, Fenofibrate F/E/N - Encourage PO intake. Monitor electrolytes and replete as needed, CC diet as tolerated Ppx - Heparin gtt Code - Full per discussion with patient Dispo - Admit to PCU History of Present Illness Chief Complaint: SOB Primary Care Provider: Teena Tracy MD April Maldonado is a pleasant 61yo female with history of DM, HTN, HLP and prior LLE VTE (?unprovoked) presents with bilateral PE. She reports feeling some mild dyspnea on exertion for several months. Appx 2 months ago she had an episode where she got very short of breath while in the kitchen, passed out and woke up on the kitchen floor. She recently had some mild trauma to her LLE after dropping something on her leg. She did develop some swelling and phlebitis wh ich was treated conservatively. She has been having flu-like symptoms for the las several days as well to include cough productive for yellow sputum, elevated temperature, chills as well as nausea and diarrhea. Her had similar symptoms one week ago which were self limiting. She has been having progressive WOLF. Last night around 20:00 she felt very ill and developed more shortness of breath and chest discomfort while in the shower. This prompted her to come to the ER. Upon arrival she was afebrile, tachycardic at 116, BP 93/76, saturation 84% on room air. She was administered maintenance fluids at 125mL/hr. CTA demonstrated bilateral PEs with right heart strain. Patient did have a prior LLE DVT years ago. Uncertain if it was provoked. ER Course: Heparin gtt, Tylenol, NSS Allergies Allergy/AdvReac Type Severity Reaction Status Date / Time latex Allergy Intermediate contact Verified 02/08/22 02:03 dermatitis Penicillins Allergy Mild Rash Verified 02/08/22 02:03 Home Medications Medication Instructions Recorded Confirmed Type aspirin 81 mg tablet,delayed 81 mg PO HS 12/31/18 02/08/22 History release escitalopram oxalate 10 mg tablet 10 mg PO HS 12/31/18 02/08/22 History Dexcom G6 Director Of Speech Pathology (blood-glucose #1 ea 09/17/19 02/02/22 Rx meter,continuous) cyanocobalamin (vitamin B-12) 1,000 mcg PO QAM 09/29/20 02/08/22 History 1,000 mcg tablet (Vitamin B-12) Dexcom G6 Transmitter #1 ea 02/21/21 02/02/22 Rx (blood-glucose transmitter) metoprolol succinate 25 mg capsule 25 mg PO DAILY 04/14/21 02/08/22 History sprinkle, ext. release 24 hr rosuvastatin 5 mg tablet 5 mg PO HS #90 tabs 04/25/21 02/08/22 Rx Dexcom G6 Sensor (blood-glucose #3 ea 05/16/21 02/02/22 Rx sensor) insulin degludec 200 unit/mL (3 90 unit (0.45 mL) subcut HS #18 mL 07/18/21 02/08/22 Rx mL) subcutaneous pen (Tresiba FlexTouch U-200 insulin) pen needle, diabetic 32 gauge x #200 ea 07/21/21 02/02/22 Rx 5/32" (BD Ultra-Fine Jessi Pen Needle) fenofibrate nanocrystallized 145 145 mg PO DAILY #90 tabs 09/02/21 02/08/22 Rx mg tablet levothyroxine 100 mcg tablet 100 mcg PO DAILY #30 tabs 10/31/21 02/08/22 Rx insulin NPH isoph U-100 human 100 30 unit (0.3 mL) subcut QAM 30 11/07/21 02/08/22 Rx unit/mL (3 mL) subcutaneous pen days #15 mL (Novolin N Flexpen) Accu-Chek Fastclix Lancet Drum #102 ea 11/21/21 02/02/22 Rx (lancets) liraglutide 0.6 mg/0.1 mL (18 mg/3 1.2 mg (0.2 mL) subcut DAILY #6 mL 01/09/22 02/08/22 Rx mL) subcutaneous pen injector (Victoza 2-Marshal) metformin 500 mg tablet,extended 1,000 mg PO BID #180 tabs 02/01/22 02/08/22 Rx release 24 hr blood sugar diagnostic (Accu-Chek #100 ea 02/02/22 02/02/22 Rx Guide test strips) losartan 100 mg tablet 100 mg PO DAILY #30 tabs 02/02/22 02/08/22 Rx insulin aspart U-100 100 unit/mL 100 unit subcut DIRECTED 02/08/22 02/08/22 History (3 mL) subcutaneous pen (Novolog Flexpen U-100 Insulin aspart) Past Med/Surg History Medical History Depression Diabetes type 2, uncontrolled DVT (deep venous thrombosis) hx of left leg 2016--unknown cause Dyslipidemia HTN (hypertension) Hypertriglyceridemia Hypothyroidism Microalbuminuria due to type 2 diabetes mellitus Morbid obesity with BMI of 40.0-44.9, adult Obesity Osteoarthritis Postmenopausal status (age-related) (natural) Right knee DJD Surgical History H/O section (~1996) H/O eye surgery orbital fx repair--hardware in place around right eye History of colonoscopy History of wisdom tooth extraction Hx of cholecystectomy Family History Grandfather (Paternal) Colorectal cancer Brother Diabetes Grandfather No problems noted. Father Diabetes Mother Ovarian cancer, Onset Age: 60 still living Other FHx: hypertension Family history of diabetes mellitus No family history of adverse response to anesthesia Denies family history of Breast cancer Social History Smoking Status: Never smoker Second Hand Exposure: No; Hx Alcohol Use: Yes Alcohol type: wine Alcohol Intake Frequency Comment: 1 glass Hx Substance Use: No Preferred Language: Syriac Communication Ability: Effective Mercantile Agent Required: No Beliefs That Will Affect Care: None marital status: Current Living Situation: Spouse and Family Current Living Situation Comment: Lives with and son Feels Safe at Home: Yes Assistive Devices: None Review of Systems Review of Systems: All systems reviewed & are unremarkable except as noted in HPI & below Physical Exam Physical Exam: General: patient resting comfortably, NAD, non-toxic in appearance, AA&O x 4 Skin: warm, dry, intact, no rashes or lesions HEENT: NC/AT, PERRL, EOMI, anicteric sclera, conjunctiva without injection, external ear normal to inspection and nontender, nares patent, moist mucus membranes, dentition intact, no oropharyngeal lesions, neck supple, trachea midline, no LAD, no thyromegaly, no JVD Heart: +S1/S2, regular, no m/r/g Lungs: equal air entry bilaterally, no rales/rhonchi/wheezes Abd: +BS, soft, NT/ND, no masses/organomegaly/ascites Ext: RLE warm with palpable pulses, LLE slightly dusky in color, cool, 1+ distal pulses Neuro: nonfocal, patient AA&O x 4, speech intact, no facial droop, moving all extremities on command with equal strength 5/5 Results & Data Results & Data ([facility]) Vital Signs (Past 12 Hours) Vital Signs Temp Pulse Resp BP Pulse Ox O2 Del Method O2 Flow Rate 02/08/22 04:30 96 H 17 135/103 H 97 02/08/22 04:15 97 H 19 115/78 95 02/08/22 03:30 99 H 16 104/83 94 02/08/22 03:00 103 H 22 110/75 95 Nasal Cannula 3 02/08/22 02:30 102 H 22 94 02/08/22 02:30 105 H 20 108/87 94 02/08/22 02:10 103 H 20 98/84 L 94 Nasal Cannula 3 02/08/22 02:00 105 H 23 106/62 94 Nasal Cannula 3 02/08/22 01:50 106 H 24 127/80 91 Nasal Cannula 3 02/08/22 01:40 107 H 24 101/72 91 Nasal Cannula 3 02/08/22 01:31 110 H 23 117/81 90 Nasal Cannula 3 02/08/22 01:20 108 H 21 112/82 92 Nasal Cannula 3 02/08/22 01:10 110 H 20 92 02/08/22 01:00 110 H 26 H 93/76 L 88 L Nasal Cannula 2 02/08/22 00:50 112 H 22 98/78 L 90 Nasal Cannula 2 02/08/22 00:40 112 H 22 110/88 87 L Nasal Cannula 2 02/08/22 00:10 115 H 23 122/82 90 02/08/22 00:00 118 H 26 H 104/73 90 02/07/22 23:50 119 H 26 H 108/66 91 02/07/22 23:30 118 H 21 106/74 91 02/07/22 23:28 120 H 13 114/89 92 Nasal Cannula 2 02/08/22 01:13 118 H 21 92 Nasal Cannula 3 02/07/22 23:11 36.8 C 116 H 24 122/82 84 L Room Air 02/07/22 23:33 91 Nasal Cannula 2 Laboratory Results Laboratory Results WBC 14.50 K/ul (4.8-10.8) H 02/07/22 23:43 RBC 4.69 M/uL (3.93-5.22) 02/07/22 23:43 Hgb 12.5 g/dl (12.0-16.0) 02/07/22 23:43 POC Hgb 12.9 g/dl (12.0-16.0) 02/07/22 23:52 Hct 38.6 % (34.1-44.9) 02/07/22 23:43 POC Hct 38 % (37-47) 02/07/22 23:52 MCV 82.3 fL (80.0-100.0) 02/07/22 23:43 MCH 26.7 pg (25.0-34.0) 02/07/22 23:43 MCHC 32.4 g/dL (32.0-36.0) 02/07/22 23:43 RDW Std Deviation 44.5 fL (36.4-46.3) 02/07/22 23:43 RDW Coeff of Aren 14.9 % (11.5-14.5) H 02/07/22 23:43 Plt Count 117 K/uL (130-400) L 02/07/22 23:43 MPV 9.6 fL (9.4-12.3) 02/07/22 23:43 Immature Gran % (Auto) 0.5 % 02/07/22 23:43 Neut % (Auto) 81.5 % 02/07/22 23:43 Lymph % (Auto) 11.6 % 02/07/22 23:43 [place] % (Auto) 5.5 % 02/07/22 23:43 Eos % (Auto) 0.3 % 02/07/22 23:43 Baso % (Auto) 0.6 % 02/07/22 23:43 Neut # (Auto) 11.82 K/uL (1.4-6.5) H 02/07/22 23:43 Lymph # (Auto) 1.68 K/uL (1.2-3.4) 02/07/22 23:43 [place] # (Auto) 0.80 K/uL (0.24-0.82) 02/07/22 23:43 Eos # (Auto) 0.05 K/uL (0-0.50) 02/07/22 23:43 Baso # (Auto) 0.08 K/uL (0-0.2) 02/07/22 23:43 Immature Gran # (Auto) 0.07 K/uL (0.00-0.02) H 02/07/22 23:43 PT 11.5 Seconds (9.0-12.0) 02/07/22 23:43 INR 1.1 (0.9-1.1) 02/07/22 23:43 POC Sodium 139 mmol/L (135-144) 02/07/22 23:52 Sodium 138 mmol/L (136-145) 02/07/22 23:43 POC Potassium 4.6 mmol/L (3.3-5.0) 02/07/22 23:52 Potassium 4.4 mmol/L (3.5-5.1) 02/07/22 23:43 POC Chloride 105 mmol/L (101-112) 02/07/22 23:52 Chloride 105 mmol/L (98-107) 02/07/22 23:43 Carbon Dioxide 23 mmol/L (21-32) 02/07/22 23:43 POC Total CO2 23 mmol/L (24-31) L 02/07/22 23:52 Anion Gap 10 (3-11) 02/07/22 23:43 POC Anion Gap 17.0 mmol/L (16-25) 02/07/22 23:52 POC BUN 25 mg/dl (7-18) H 02/07/22 23:52 BUN 23 mg/dl (6-23) 02/07/22 23:43 Creatinine 1.55 mg/dl (0.6-1.2) H 02/07/22 23:43 POC Creatinine 1.5 mg/dl (0.6-1.3) H 02/07/22 23:52 Est Cr Clr Drug Dosing 52.6 ml/min 02/07/22 23:43 Est GFR ( Amer) 42.0 ml/min 02/07/22 23:43 Est GFR (Non-Af Amer) 36.3 ml/min 02/07/22 23:43 BUN/Creatinine Ratio 14.8 (10-20) 02/07/22 23:43 Glucose 191 mg/dl (70-99(Fasting)) H 02/07/22 23:43 POC Glucose 179 mg/dl (70-99) H 02/07/22 23:52 POC Glucose (other) 196 mg/dl (70-99) H 02/07/22 23:52 Calcium 9.8 mg/dl (8.5-10.1) 02/07/22 23:43 POC Ioniz Calcium Gi[place]anna 1.27 mmol/l (1.12-1.32) 02/07/22 23:52 Total Bilirubin 0.4 mg/dl (0.2-1.0) 02/07/22 23:43 AST 139 U/L (13-39) H 02/07/22 23:43 ALT 109 U/L (7-52) H 02/07/22 23:43 Alkaline Phosphatase 81 U/L (34-104) 02/07/22 23:43 Troponin I High Sens 891.0 pg/ml (0-14) H* 02/07/22 23:43 Total Protein 7.1 gm/dl (6.0-8.3) 02/07/22 23:43 Albumin 4.2 gm/dl (3.4-5.0) 02/07/22 23:43 Globulin 2.9 gm/dl (2.5-4.0) 02/07/22 23:43 Albumin/Globulin Ratio 1.4 (0.9-2) 02/07/22 23:43 Lipase 21 U/L (11-82) 02/07/22 23:43 SARS-CoV-2 (PCR) NEGATIVE (Negative) 02/08/22 Unknown Influenza Type A (PCR) Negative (Neg) 02/08/22 Unknown Influenza Type B (PCR) Negative (Neg) 02/08/22 Unknown RSV (RT-PCR) Negative (Neg) 02/08/22 Unknown Diagnostic Findings CTA - multiple bilateral PE sparing only the LIZ. Mild dilation nof the RV and mildly elevated RV/LV ratio suggestive of right heart strain. Mild biapical pleural scarring. ECG Additional Comments: EKG shows ST at 117 Code Status & VTE Plan VTE Prophylaxis Plan VTE Prophylaxis will be ordered: Yes PG Care Time/CCT Total # of Minutes Spent Total Time Spent with Patient: Total time spent is greater than 50% in coordination of care (as documented) at patient's floor/unit and/or counseling patient: Coding Level of Care Code 25149 Initial Inpt Care Lvl 3 Diagnoses Pulmonary emboli I26.99 Type 2 diabetes mellitus, controlled E11.9 Hypothyroidism E03.9 HTN (hypertension) I10 Dyslipidemia E78.5
--- NOTE | 2022-02-08 08:06 | CT Scan Report ---
CT ANGIOGRAPHY OF THE CHEST, PULMONARY EMBOLUS PROTOCOL CLINICAL HISTORY: Shortness of breath. Hypoxia. COMPARISON STUDY: Chest radiograph February 07, 2022. TECHNIQUE: Following IV administration of 115 mL of Optiray, helical axial images of the chest were o btained utilizing the pulmonary embolus protocol. Maximal intensity projections and sagittal and cor onal reformats were viewed on an independent 3D workstation. IV contrast was administered without co mplication. Automated exposure control was utilized for the study. A dose lowering technique was ut ilized adhering to the principles of ALARA. CT DOSE: 822.47 mGy.cm FINDINGS: Extensive bilateral pulmonary emboli are noted. These include emboli within the distal rig ht pulmonary artery. Nearly occlusive emboli within the right interlobar pulmonary artery is noted. T here is dilatation of the right heart chambers with straightening of the interventricular septum. No pulmonary infarct is present. Several calcified granulomas within the lungs are present. There is no thoracic lymphadenopathy. No pericardial effusion is present. There is no pneumothorax or pleural eff usion. Hepatic steatosis is incidentally noted. There are calcified granulomas within the spleen. IMPRESSION: Extensive bilateral pulmonary emboli with CT findings raising the possibility of right h eart strain. ACT 112: Negative or not required by law. Electronically signed by: Tad Keen M.D. 02/08/2022 8:04 AM
[2022-02-08] MEDS ORDERED: GLUCAGON FOR INJ 1 MG VIAL SQ PRN (08:08)
[2022-02-08] MEDS ORDERED: CARBOHYDRATES FOR HYPOGLYCEMIA PO PRN (08:08)
[2022-02-08] MEDS ORDERED: DEXTROSE 50% 50 ML SYRINGE IV PRN (08:08)
[2022-02-08] MEDS ORDERED: ACETAMINOPHEN 325 MG TAB PO PRN (08:08)
[2022-02-08] MEDS ORDERED: GLUCOSE 40% GEL 15 GM TUBE PO PRN (08:08)
[2022-02-08] MEDS ORDERED: GLUCOSE 10 TAB/TUBE PO PRN (08:08)
[2022-02-08] MEDS ORDERED: ONDANSETRON INJ 2 MG/ML 2 ML VIAL IV PRN (08:08)
--- NOTE | 2022-02-08 09:02 | XRay Report ---
XR chest 1V portable CLINICAL HISTORY: Resp sx c/w COVID-19 COMPARISON STUDY: Chest radiograph April 15, 2017. FINDINGS: Lung volumes are normal. Lungs are clear. There is no pneumothorax or pleural effusion. Car diac size is at the upper limits of normal. Mediastinal contours are normal. There is no evidence for pulmonary edema. IMPRESSION: No acute cardiopulmonary findings. ACT 112: Negative or not required by law. Electronically signed by: Tad Keen M.D. 02/08/2022 9:00 AM
[2022-02-08] MEDS: LEVOTHYROXINE SODIUM 100 MCG TABLET PO SCH (09:31)
[2022-02-08] MEDS: FENOFIBRATE NANOCRYSTALLIZED 145 MG TABLET PO SCH (09:31)
--- NOTE | 2022-02-08 09:31 | Electrocardiogram Report ---
Test Reason : Blood Pressure : / mmHG Vent. Rate : 117 BPM Atrial Rate : 117 BPM P-R Int : 132 ms QRS Dur : 096 ms QT Int : 346 ms P-R-T Axes : 070 -49 078 degrees QTc Int : 482 ms Sinus tachycardia Left anterior fascicular block Poor R wave progression, consider anterior RI vs. lead placement vs. LVH Abnormal ECG No previous ECGs available Confirmed by Pernell Whelan ([id number]) on 02/08/2022 9:30:35 AM Referred By: REFERRED SELF Confirmed By:Pernell Whelan
[2022-02-08 09:39] LABS: Magnesium 1.6 mg/dl (1.7-2.4); Phosphorus 3.4 mg/dl (2.5-4.9)
[2022-02-08] MEDS: INSULIN ASPART PER UNIT SC SCH ×4 (09:40→21:33)
[2022-02-08] MEDS: LANTUS PER UNIT CHARGE SQ SCH ×2 (09:42→21:34)
[2022-02-08 09:43] LABS: Troponin I High Sensitivity 817.3 pg/ml (0-14)
--- NOTE | 2022-02-08 10:27 | Ultrasound Report ---
LEFT LOWER EXTREMITY VENOUS DOPPLER HISTORY: History of pulmonary embolus. Assess for DVT. COMPARISON STUDY: Left leg venous Doppler 03/28/2007. FINDINGS: Occlusive to near occlusive thrombus seen throughout the majority of the left lower extremi ty deep venous structures. There is a broken flow within the posterior tibial and anterior tibial vei n suggestive of partial thrombus. There is reversed flow within the superficial femoral and mid popli teal veins appear IMPRESSION: Occlusive to near occlusive thrombus throughout the majority left lower extremity deep venous structu res. ACT 112: Negative or not required by law. Electronically signed by: Kunal Means M.D. 02/08/2022 10:26 AM
[2022-02-08] MEDS: SODIUM CHLORIDE 0.9% 500 ML IV SCH ×2 (10:37→17:23)
--- NOTE | 2022-02-08 11:11 | XCELERA ---
[id number]
--- NOTE | 2022-02-08 13:27 | Hospitalist Progress Note ---
Date of Service February 08, 2022 Assessment & Plan (1) Pulmonary emboli: Plan: Bilateral pulmonary emboli found on chest CTA producing transient hypotension resolved with IV fluids. Probable source is left lower extremity DVT. Currently on heparin drip which we will continue for 48 hours then switch to Xarelto therapy indefinitely. If she becomes hemodynamically unstable, she may need thrombolytic therapy. Did have prior LLE VTE in the past. (2) Type 2 diabetes mellitus, controlled: Plan: Fairly well controlled with last PnrR9J=6.3 on 09/01/21. Patient is on tirzepatide, Metformin, Liraglutide and insulin (NPH, Novolog and Degludec) as an outpatient. Currently on Lantus 45u BID, ISS. ADA diet (3) Hypothyroidism: Plan: Chronic. Stable. Last TSH 09/01/21 = 2.674. Continue Synthroid 100mcg po daily (4) HTN (hypertension): Plan: Patient with low blood pressure on arrival, 93/76. Resolved with IV fluids. Holding antihypertensives for now, Metoprolol and Losartan. (5) Dyslipidemia: Plan: Chronic. Continue Crestor, Fenofibrate (6) Acute respiratory failure with hypoxia: Plan: Due to bilateral acute pulmonary emboli. Oxygen per nasal cannula to maintain saturation greater than 90%. Wean off as tolerated (7) Hypotension: Plan: Present on admission. 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 Currently on heparin drip for 48 hours. Then switched to Xarelto which she was on in the past Plan Eventual discharge to home Admission and Anticipated Discharge Date Admission Date: February 08, 2022 Subjective Alert and oriented. She appears somewhat anxious but is hemodynamically stable. Venous Doppler of the legs reveals extensive left lower extremity DVT. She has had DVT in the past and previously was on Xarelto. She currently is on a heparin drip and eventually will be switched back to Xarelto and probably will need to stay on this for her lifetime. Metoprolol and losartan are on hold. Blood pressure is stable at this time. She remains on IV fluid. Cardiac echo report pending Review of Systems Review of Systems: Constitutional-no fever or chills ENT-no blurred vision, no double vision, no epistaxis, no sore throat Respiratory-no cough, no wheezing. No shortness of breath at rest. She is short of breath with minimal exertion Cardiac-no palpitations, no chest pain, no syncope GI-no nausea, vomiting, diarrhea, melena, hematochezia -no urinary retention, no urinary incontinence, no dysuria, no hematuria Musculoskeletal-no joint pain, no muscle tenderness. She has noticed increased swelling in the left lower extremity lately Neuro-no isolated weakness, no paresthesia, no weakness Psych-no depression, no anxiety Physical Exam Physical Exam: General-alert and oriented x3, no fevers, no chills HEENT-head atraumatic and normocephalic, pupils equal and reactive to light, extraocular muscles intact Neck-no lymphadenopathy or thyromegaly, trachea midline Chest-clear to auscultation percussion. No rales wheezing or rhonchi Cardiac-regular rate and rhythm, normal S1 and S2, no murmurs Abdomen-normal bowel sounds, nontender, no hepatosplenomegaly Extremities-distal left lower extremity is slightly more swollen than the distal right lower extremity. Good peripheral perfusion. Neuro-cranial nerves II through XII intact, motor and sensory function within normal limits, strength symmetrical , no focal deficits Psych-appears to be somewhat anxious Results & Data Results & Data ([facility]) Vital Signs (Past 12 Hours) Vital Signs Pulse Pulse Resp BP BP Pulse Ox Pulse Ox 02/08/22 12:30 90 18 02/08/22 12:00 86 18 02/08/22 11:30 88 22 02/08/22 11:00 89 18 02/08/22 10:31 94 H 19 96 02/08/22 10:31 142/71 H 02/08/22 10:30 97 H 15 96 02/08/22 10:26 84 26 H 96 02/08/22 09:30 83 20 96 02/08/22 09:30 150/95 H 02/08/22 09:01 148/110 H 02/08/22 09:01 83 20 97 02/08/22 09:00 82 19 97 02/08/22 08:31 81 21 96 02/08/22 08:31 176/88 H 02/08/22 08:30 81 21 95 02/08/22 08:00 85 20 02/08/22 08:00 134/107 H 02/08/22 07:46 78 20 119/78 94 02/08/22 07:00 89 16 112/88 96 02/08/22 08:08 86 18 134/107 H 96 02/08/22 08:08 95 02/08/22 07:00 90 18 119/78 96 02/08/22 06:30 94 H 23 97 02/08/22 06:30 129/77 02/08/22 06:00 86 20 140/93 94 02/08/22 05:30 95 H 24 115/88 92 02/08/22 05:00 96 H 22 148/112 H 91 02/08/22 04:30 96 H 17 135/103 H 97 02/08/22 04:15 97 H 19 115/78 95 02/08/22 03:30 99 H 16 104/83 94 02/08/22 03:00 103 H 22 110/75 95 02/08/22 02:30 102 H 22 94 02/08/22 02:30 105 H 20 108/87 94 02/08/22 02:10 103 H 20 98/84 L 94 02/08/22 02:00 105 H 23 106/62 94 02/08/22 01:50 106 H 24 127/80 91 02/08/22 01:40 107 H 24 101/72 91 02/08/22 01:31 110 H 23 117/81 90 02/08/22 01:20 108 H 21 112/82 92 O2 Del Method O2 Del Method O2 Flow Rate O2 Flow Rate 02/08/22 12:30 02/08/22 12:00 02/08/22 11:30 02/08/22 11:00 02/08/22 10:31 02/08/22 10:31 02/08/22 10:30 02/08/22 10:26 02/08/22 09:30 02/08/22 09:30 02/08/22 09:01 02/08/22 09:01 02/08/22 09:00 02/08/22 08:31 02/08/22 08:31 02/08/22 08:30 02/08/22 08:00 02/08/22 08:00 02/08/22 07:46 Room Air 02/08/22 07:00 Room Air 02/08/22 08:08 Nasal Cannula 3 02/08/22 08:08 Nasal Cannula 3 02/08/22 07:00 Nasal Cannula 3 02/08/22 06:30 02/08/22 06:30 02/08/22 06:00 Nasal Cannula 3 02/08/22 05:30 Nasal Cannula 3 02/08/22 05:00 Nasal Cannula 3 02/08/22 04:30 02/08/22 04:15 02/08/22 03:30 02/08/22 03:00 Nasal Cannula 3 02/08/22 02:30 02/08/22 02:30 02/08/22 02:10 Nasal Cannula 3 02/08/22 02:00 Nasal Cannula 3 02/08/22 01:50 Nasal Cannula 3 02/08/22 01:40 Nasal Cannula 3 02/08/22 01:31 Nasal Cannula 3 02/08/22 01:20 Nasal Cannula 3 Laboratory Results 02/07/22 23:43 02/07/22 23:43 PG Care Time/CCT Total # of Minutes Spent Total Time Spent with Patient: Total time spent is greater than 50% in coordination of care (as documented) at patient's floor/unit and/or counseling patient: Coding Level of Care Code 46991 Subseq Hosp Care Lvl 3 Diagnoses Pulmonary emboli I26.99 Type 2 diabetes mellitus, controlled E11.9 Hypothyroidism E03.9 HTN (hypertension) I10 Dyslipidemia E78.5 Acute respiratory failure with hypoxia J96.01 Hypotension I95.9 DVT of leg (deep venous thrombosis) I82.409
[2022-02-08 15:07] LABS: Partial Thromboplastin Ratio 1.5; Partial Thromboplastin Time 41.1 Seconds (21.0-31.0)
[2022-02-08] MEDS ORDERED: FLUARIX QUADRIVALENT 0.5 ML SYR IM ONE (18:45)
[2022-02-08] MEDS: ESCITALOPRAM OXALATE 10 MG TAB PO SCH (21:33)
[2022-02-08] MEDS: ASPIRIN 81 MG ECTAB PO SCH (21:33)
[2022-02-08] MEDS: ROSUVASTATIN CALCIUM 5 MG TAB PO SCH (21:34)
[2022-02-09 00:21] LABS: Partial Thromboplastin Ratio 1.3; Partial Thromboplastin Time 35.4 Seconds (21.0-31.0)
[2022-02-09 07:20] LABS: Basophils # (auto) 0.08 K/uL (0-0.2); Basophils % (auto) 0.8 %; Eosinophils % (auto) 2.9 %; Hematocrit (blood only) 34.9 % (34.1-44.9); Immature Granulocytes # (auto) 0.04 K/uL (0.00-0.02); Immature Granulocytes % (auto) 0.4 %; Lymphocytes # (auto) 3.29 K/uL (1.2-3.4); Lymphocytes % (auto) 31.8 %; Mean Corpuscular Hemoglobin 26.8 pg (25.0-34.0); Mean Corpuscular Hgb Conc 31.5 g/dL (32.0-36.0); Mean Corpuscular Volume 84.9 fL (80.0-100.0); Monocytes # (auto) 0.62 K/uL (0.24-0.82); Neutrophils % (auto) 58.1 %; Platelet Count 106 K/uL (130-400); RDW Coefficient of Variation 15.2 % (11.5-14.5); RDW Standard Deviation 46.3 fL (36.4-46.3); Red Blood Count 4.11 M/uL (3.93-5.22); White Blood Count 10.33 K/ul (4.8-10.8)
[2022-02-09] MEDS: SODIUM CHLORIDE 0.9% 500 ML IV SCH (07:34)
[2022-02-09] MEDS: SODIUM CHLORIDE 0.9% 1000ML 1,000 ML IV SCH ×2 (07:42→20:10)
[2022-02-09] MEDS: LEVOTHYROXINE SODIUM 100 MCG TABLET PO SCH (07:44)
[2022-02-09 07:55] LABS: Albumin Level 3.8 gm/dl (3.4-5.0); Bilirubin Direct 0.1 mg/dl (0-0.2); Bilirubin,Total 0.4 mg/dl (0.2-1.0); Calcium 8.8 mg/dl (8.5-10.1); Creatinine Clr Calc Pharmacy 69.9 ml/min; Est GFR (African American) 59.7 ml/min; Est GFR (Non-African American) 51.5 ml/min; Potassium 4.6 mmol/L (3.5-5.1); Total Protein 6.5 gm/dl (6.0-8.3)
[2022-02-09 08:02] LABS: Partial Thromboplastin Ratio 1.8
[2022-02-09] MEDS: FENOFIBRATE NANOCRYSTALLIZED 145 MG TABLET PO SCH (08:24)
[2022-02-09 08:26] LABS: Partial Thromboplastin Time 50.6 Seconds (21.0-31.0)
[2022-02-09] MEDS: INSULIN ASPART PER UNIT SC SCH ×4 (08:28→20:13)
[2022-02-09] MEDS: LANTUS PER UNIT CHARGE SQ SCH ×2 (08:29→20:14)
[2022-02-09 09:43] LABS: Estimated Average Glucose 200 mg/dl; Hemoglobin A1C 8.6 % (4.5-5.6)
[2022-02-09] MEDS: METOPROLOL SUCC 25MG EXT REL TAB PO SCH (10:12)
[2022-02-09] MEDS: HEPARIN SODIUM/DEXTROSE 25,000 UNITS/500 ML BAG IV SCH (12:24)
--- NOTE | 2022-02-09 13:17 | Hospitalist Progress Note ---
Date of Service February 09, 2022 Assessment & Plan (1) Pulmonary emboli: Plan: Bilateral pulmonary emboli found on chest CTA producing transient hypotension resolved with IV fluids. Probable source is left lower extremity DVT. Currently on heparin drip which we will continue for 48 hours then switch to Xarelto therapy indefinitely. If she becomes hemodynamically unstable, she may need thrombolytic therapy. Did have prior LLE VTE in the past. (2) Type 2 diabetes mellitus, controlled: Plan: Fairly well controlled with last OeeN0J=7.3 on 09/01/21. Patient is on tirzepatide, Metformin, Liraglutide and insulin (NPH, Novolog and Degludec) as an outpatient. Currently on Lantus 45u BID, ISS. ADA diet (3) Hypothyroidism: Plan: Chronic. Stable. Last TSH 09/01/21 = 2.674. Continue Synthroid 100mcg po daily (4) HTN (hypertension): Plan: Patient with low blood pressure on arrival, 93/76. Resolved with IV fluids. Held antihypertensives on admission , Metoprolol and Losartan. Metoprolol restarted today, February 09 (5) Dyslipidemia: Plan: Chronic. Continue Crestor, Fenofibrate (6) Acute respiratory failure with hypoxia: Plan: Due to bilateral acute pulmonary emboli. Oxygen per nasal cannula to maintain saturation greater than 90%. Wean off as tolerated. She may transiently need home oxygen however (7) Hypotension: Plan: Present on admission. 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 Currently on heparin drip for 48 hours. Then switch to Xarelto which she was on in the past Plan Eventual discharge to home Admission and Anticipated Discharge Date Admission Date: February 08, 2022 Subjective Alert and oriented. Her son is at the bedside. She is stable on the heparin drip. She eventually will be converted back to Xarelto which she was on in the past. Hopefully she can be discharged home soon. She may transiently need oxygen for a while Review of Systems Review of Systems: Constitutional-no fever or chills ENT-no blurred vision, no double vision, no epistaxis, no sore throat Respiratory-no cough, no wheezing. No shortness of breath at rest. She is short of breath with minimal exertion Cardiac-no palpitations, no chest pain, no syncope GI-no nausea, vomiting, diarrhea, melena, hematochezia -no urinary retention, no urinary incontinence, no dysuria, no hematuria Musculoskeletal-no joint pain, no muscle tenderness. She has noticed increased swelling in the left lower extremity lately Neuro-no isolated weakness, no paresthesia, no weakness Psych-no depression, no anxiety Physical Exam Physical Exam: General-alert and oriented x3, no fevers, no chills HEENT-head atraumatic and normocephalic, pupils equal and reactive to light, extraocular muscles intact Neck-no lymphadenopathy or thyromegaly, trachea midline Chest-clear to auscultation percussion. No rales wheezing or rhonchi Cardiac-regular rate and rhythm, normal S1 and S2, no murmurs Abdomen-normal bowel sounds, nontender, no hepatosplenomegaly Extremities-distal left lower extremity is slightly more swollen than the distal right lower extremity. Good peripheral perfusion. Neuro-cranial nerves II through XII intact, motor and sensory function within normal limits, strength symmetrical , no focal deficits Psych-appears to be somewhat anxious Results & Data Results & Data ([facility]) Vital Signs (Past 12 Hours) Vital Signs Temp Pulse Pulse Resp BP BP Pulse Ox 02/09/22 11:49 36.6 C 72 18 167/72 H 99 02/09/22 11:13 72 02/09/22 10:11 82 136/82 02/09/22 07:56 02/09/22 07:15 36.6 C 73 23 143/71 H 96 02/09/22 04:27 98 H 02/09/22 02:56 36.7 C 80 18 142/81 H 96 O2 Del Method O2 Flow Rate 02/09/22 11:49 Room Air 02/09/22 11:13 02/09/22 10:11 02/09/22 07:56 Nasal Cannula 2 02/09/22 07:15 Nasal Cannula 2 02/09/22 04:27 02/09/22 02:56 Nasal Cannula Laboratory Results 02/09/22 06:45 02/09/22 06:45 PG Care Time/CCT Total # of Minutes Spent Total Time Spent with Patient: Total time spent is greater than 50% in coordination of care (as documented) at patient's floor/unit and/or counseling patient: Coding Level of Care Code 42946 Subseq Hosp Care Lvl 3 Diagnoses Pulmonary emboli I26.99 Type 2 diabetes mellitus, controlled E11.9 Hypothyroidism E03.9 HTN (hypertension) I10 Dyslipidemia E78.5 Acute respiratory failure with hypoxia J96.01 Hypotension I95.9 DVT of leg (deep venous thrombosis) I82.409
[2022-02-09] MEDS: ROSUVASTATIN CALCIUM 5 MG TAB PO SCH (20:12)
[2022-02-09] MEDS: ESCITALOPRAM OXALATE 10 MG TAB PO SCH (20:12)
[2022-02-09] MEDS: ASPIRIN 81 MG ECTAB PO SCH (20:13)
[2022-02-10] MEDS: HEPARIN SODIUM/DEXTROSE 25,000 UNITS/500 ML BAG IV SCH ×3 (00:57→16:22)
[2022-02-10 08:06] LABS: Basophils # (auto) 0.06 K/uL (0-0.2); Basophils % (auto) 0.6 %; Eosinophils # (auto) 0.24 K/uL (0-0.50); Eosinophils % (auto) 2.5 %; Hematocrit (blood only) 35.2 % (34.1-44.9); Hemoglobin 10.9 g/dl (12.0-16.0); Immature Granulocytes # (auto) 0.04 K/uL (0.00-0.02); Immature Granulocytes % (auto) 0.4 %; Lymphocytes # (auto) 2.94 K/uL (1.2-3.4); Lymphocytes % (auto) 30.6 %; Mean Corpuscular Hemoglobin 26.3 pg (25.0-34.0); Monocytes # (auto) 0.61 K/uL (0.24-0.82); Monocytes % (auto) 6.4 %; Neutrophils # (auto) 5.71 K/uL (1.4-6.5); Neutrophils % (auto) 59.5 %; Platelet Count 107 K/uL (130-400); RDW Coefficient of Variation 15.2 % (11.5-14.5); RDW Standard Deviation 46.3 fL (36.4-46.3); Red Blood Count 4.14 M/uL (3.93-5.22)
[2022-02-10 08:36] LABS: Partial Thromboplastin Ratio 1.8
[2022-02-10 08:37] LABS: Partial Thromboplastin Time 50.2 Seconds (21.0-31.0)
[2022-02-10] MEDS: INSULIN ASPART PER UNIT SC SCH ×4 (09:25→19:36)
[2022-02-10] MEDS: LANTUS PER UNIT CHARGE SQ SCH ×2 (09:26→19:42)
[2022-02-10] MEDS: METOPROLOL SUCC 25MG EXT REL TAB PO SCH (09:27)
[2022-02-10] MEDS: LEVOTHYROXINE SODIUM 100 MCG TABLET PO SCH (09:27)
[2022-02-10] MEDS: FENOFIBRATE NANOCRYSTALLIZED 145 MG TABLET PO SCH (09:27)
[2022-02-10] MEDS: SODIUM CHLORIDE 0.9% 1000ML 1,000 ML IV SCH ×2 (09:30→19:41)
--- NOTE | 2022-02-10 18:23 | Hospitalist Progress Note ---
Date of Service February 10, 2022 Assessment & Plan (1) Pulmonary emboli: Plan: Bilateral pulmonary emboli found on chest CTA producing transient hypotension resolved with IV fluids. Probable source is left lower extremity DVT. Currently on heparin drip which we will continue for 48 hours then switch to Xarelto therapy indefinitely. If she becomes hemodynamically unstable, she may need thrombolytic therapy. Did have prior LLE VTE in the past. (2) Type 2 diabetes mellitus, controlled: Plan: Fairly well controlled with last BghD6L=5.3 on 09/01/21. Patient is on tirzepatide, Metformin, Liraglutide and insulin (NPH, Novolog and Degludec) as an outpatient. Currently on Lantus 45u BID, ISS. ADA diet (3) Hypothyroidism: Plan: Chronic. Stable. Last TSH 09/01/21 = 2.674. Continue Synthroid 100mcg po daily (4) HTN (hypertension): Plan: Patient with low blood pressure on arrival, 93/76. Resolved with IV fluids. Held antihypertensives on admission , Metoprolol and Losartan. Metoprolol restarted today, February 09 (5) Dyslipidemia: Plan: Chronic. Continue Crestor, Fenofibrate (6) Acute respiratory failure with hypoxia: Plan: Due to bilateral acute pulmonary emboli. Oxygen per nasal cannula to maintain saturation greater than 90%. Wean off as tolerated. She may transiently need home oxygen however (7) Hypotension: Plan: Present on admission. 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 Currently on heparin drip for 48 hours. Then switch to Xarelto which she was on in the past Plan Eventual discharge to home Admission and Anticipated Discharge Date Admission Date: February 08, 2022 Subjective Patient maintained on IV heparin Denies any chest pain reports her shortness of breath is improved Review of Systems Review of Systems: Constitutional-no fever or chills ENT-no blurred vision, no double vision, no epistaxis, no sore throat Respiratory-no cough, no wheezing. No shortness of breath at rest. She is short of breath with minimal exertion Cardiac-no palpitations, no chest pain, no syncope GI-no nausea, vomiting, diarrhea, melena, hematochezia -no urinary retention, no urinary incontinence, no dysuria, no hematuria Musculoskeletal-no joint pain, no muscle tenderness. She has noticed increased swelling in the left lower extremity lately Neuro-no isolated weakness, no paresthesia, no weakness Psych-no depression, no anxiety Physical Exam Physical Exam: Neck no JVD Cardiovascular S1-S2 normal no S3 no rubs Lungs bilateral air entry fair no wheezing Abdomen soft no rebound tenderness Extremity shows no edema Results & Data Results & Data ([facility]) Vital Signs (Past 12 Hours) Vital Signs Temp Pulse Pulse Resp BP BP Pulse Ox 02/10/22 16:49 36.8 C 83 22 136/57 L 93 02/10/22 16:29 70 02/10/22 12:49 36.7 C 66 18 140/78 97 02/10/22 09:53 02/10/22 08:52 36.4 C L 69 18 147/68 H 100 02/10/22 07:33 85 O2 Del Method O2 Flow Rate 02/10/22 16:49 Room Air 02/10/22 16:29 02/10/22 12:49 Room Air 02/10/22 09:53 Nasal Cannula 1 02/10/22 08:52 Nasal Cannula 2 02/10/22 07:33 PG Care Time/CCT Total # of Minutes Spent Total Time Spent with Patient: Total time spent is greater than 50% in coordination of care (as documented) at patient's floor/unit and/or counseling patient: Coding Level of Care Code 64148 Subseq Hosp Care Lvl 2 Diagnoses Pulmonary emboli I26.99 Type 2 diabetes mellitus, controlled E11.9 Hypothyroidism E03.9 HTN (hypertension) I10 Dyslipidemia E78.5 Acute respiratory failure with hypoxia J96.01 Hypotension I95.9 DVT of leg (deep venous thrombosis) I82.409
[2022-02-10] MEDS: ROSUVASTATIN CALCIUM 5 MG TAB PO SCH (19:37)
[2022-02-10] MEDS: ESCITALOPRAM OXALATE 10 MG TAB PO SCH (19:38)
[2022-02-10] MEDS: ASPIRIN 81 MG ECTAB PO SCH (19:38)
[2022-02-11] MEDS: HEPARIN SODIUM/DEXTROSE 25,000 UNITS/500 ML BAG IV SCH (05:31)
[2022-02-11 05:49] LABS: Basophils # (auto) 0.04 K/uL (0-0.2); Basophils % (auto) 0.4 %; Eosinophils # (auto) 0.16 K/uL (0-0.50); Eosinophils % (auto) 1.8 %; Immature Granulocytes # (auto) 0.04 K/uL (0.00-0.02); Immature Granulocytes % (auto) 0.4 %; Lymphocytes # (auto) 2.24 K/uL (1.2-3.4); Lymphocytes % (auto) 25.1 %; Mean Corpuscular Hemoglobin 26.3 pg (25.0-34.0); Mean Corpuscular Hgb Conc 31.3 g/dL (32.0-36.0); Mean Corpuscular Volume 84.2 fL (80.0-100.0); Mean Platelet Volume 9.5 fL (9.4-12.3); Monocytes # (auto) 0.62 K/uL (0.24-0.82); Neutrophils # (auto) 5.81 K/uL (1.4-6.5); Neutrophils % (auto) 65.3 %; Platelet Count 113 K/uL (130-400); RDW Coefficient of Variation 15.1 % (11.5-14.5); RDW Standard Deviation 46.3 fL (36.4-46.3); White Blood Count 8.91 K/ul (4.8-10.8)
[2022-02-11 06:24] LABS: BUN Creatinine Ratio 14.2 (10-20); Calcium 8.2 mg/dl (8.5-10.1); Creatinine Clr Calc Pharmacy 77.9 ml/min; Est GFR (African American) 66.6 ml/min; Est GFR (Non-African American) 57.4 ml/min; Potassium 4.4 mmol/L (3.5-5.1)
[2022-02-11 06:26] LABS: Partial Thromboplastin Ratio 1.7
[2022-02-11 06:40] LABS: Partial Thromboplastin Time 46.6 Seconds (21.0-31.0)
[2022-02-11] MEDS: INSULIN ASPART PER UNIT SC SCH ×4 (08:14→20:44)
[2022-02-11] MEDS: LANTUS PER UNIT CHARGE SQ SCH ×2 (08:14→20:46)
[2022-02-11] MEDS: SODIUM CHLORIDE 0.9% 1000ML 1,000 ML IV SCH ×2 (08:24→21:09)
[2022-02-11] MEDS: LEVOTHYROXINE SODIUM 100 MCG TABLET PO SCH (08:25)
[2022-02-11] MEDS: METOPROLOL SUCC 25MG EXT REL TAB PO SCH (08:25)
[2022-02-11] MEDS: FENOFIBRATE NANOCRYSTALLIZED 145 MG TABLET PO SCH (08:25)
--- NOTE | 2022-02-11 18:08 | Hospitalist Progress Note ---
Date of Service February 11, 2022 Assessment & Plan (1) Pulmonary emboli: Plan: Bilateral pulmonary emboli found on chest CTA producing transient hypotension resolved with IV fluids. Probable source is left lower extremity DVT. Currently on heparin drip which we will continue for 48 hours then switch to Xarelto therapy indefinitely. If she becomes hemodynamically unstable, she may need thrombolytic therapy. Did have prior LLE VTE in the past. Patient will be started on Xarelto today (2) Type 2 diabetes mellitus, controlled: Plan: Fairly well controlled with last NhoT4O=6.3 on 09/01/21. Patient is on tirzepatide, Metformin, Liraglutide and insulin (NPH, Novolog and Degludec) as an outpatient. Currently on Lantus 45u BID, ISS. ADA diet (3) Hypothyroidism: Plan: Chronic. Stable. Last TSH 09/01/21 = 2.674. Continue Synthroid 100mcg po daily (4) HTN (hypertension): Plan: Patient with low blood pressure on arrival, 93/76. Resolved with IV fluids. Held antihypertensives on admission , Metoprolol and Losartan. Metoprolol restarted today, February 09 (5) Dyslipidemia: Plan: Chronic. Continue Crestor, Fenofibrate (6) Acute respiratory failure with hypoxia: Plan: Due to bilateral acute pulmonary emboli. Oxygen per nasal cannula to maintain saturation greater than 90%. Wean off as tolerated. She may transiently need home oxygen however (7) Hypotension: Plan: Present on admission. 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 Currently on heparin drip for 48 hours. Then switch to Xarelto which she was on in the past Plan Eventual discharge to home Admission and Anticipated Discharge Date Admission Date: February 08, 2022 Subjective Patient maintained on IV heparin Denies any chest pain reports her shortness of breath is improved will transition patient to Xarelto Review of Systems Review of Systems: Constitutional-no fever or chills ENT-no blurred vision, no double vision, no epistaxis, no sore throat Respiratory-no cough, no wheezing. No shortness of breath at rest. She is short of breath with minimal exertion Cardiac-no palpitations, no chest pain, no syncope GI-no nausea, vomiting, diarrhea, melena, hematochezia -no urinary retention, no urinary incontinence, no dysuria, no hematuria Musculoskeletal-no joint pain, no muscle tenderness. She has noticed increased swelling in the left lower extremity lately Neuro-no isolated weakness, no paresthesia, no weakness Psych-no depression, no anxiety Physical Exam Physical Exam: Neck no JVD Cardiovascular S1-S2 normal no S3 no rubs Lungs bilateral air entry fair no wheezing Abdomen soft no rebound tenderness Extremity shows no edema Results & Data Results & Data ([facility]) Vital Signs (Past 12 Hours) Vital Signs Temp Pulse Pulse Resp BP Pulse Ox O2 Del Method 02/11/22 16:34 36.8 C 71 18 165/75 H 95 Room Air 02/11/22 12:42 36.8 C 68 19 140/76 96 Room Air 02/11/22 09:53 87 02/11/22 09:48 Room Air 02/11/22 06:46 36.6 C 69 18 158/83 H 95 Room Air Laboratory Results Short CBC 02/11/22 Range/Units 05:28 WBC 8.91 (4.8-10.8) K/ul Hgb 10.0 L (12.0-16.0) g/dl Hct 32.0 L (34.1-44.9) % Plt Count 113 L (130-400) K/uL BMP 02/11/22 05:28 Sodium 139 Potassium 4.4 Chloride 109 H Carbon Dioxide 25 BUN 15 Creatinine 1.06 Glucose 138 H Calcium 8.2 L PG Care Time/CCT Total # of Minutes Spent Total Time Spent with Patient: Total time spent is greater than 50% in coordination of care (as documented) at patient's floor/unit and/or counseling patient: Coding Level of Care Code 07679 Subseq Hosp Care Lvl 2 Diagnoses Pulmonary emboli I26.99 Type 2 diabetes mellitus, controlled E11.9 Hypothyroidism E03.9 HTN (hypertension) I10 Dyslipidemia E78.5 Acute respiratory failure with hypoxia J96.01 Hypotension I95.9 DVT of leg (deep venous thrombosis) I82.409
[2022-02-11] MEDS: RIVAROXABAN 15 MG TAB PO SCH (18:31)
[2022-02-11] MEDS: ASPIRIN 81 MG ECTAB PO SCH (20:08)
[2022-02-11] MEDS: ESCITALOPRAM OXALATE 10 MG TAB PO SCH (20:08)
[2022-02-11] MEDS: ROSUVASTATIN CALCIUM 5 MG TAB PO SCH (20:08)
[2022-02-11] MEDS ORDERED: LANTUS PER UNIT CHARGE SQ ONE (20:47)
[2022-02-12 05:24] LABS: Hematocrit (blood only) 32.8 % (34.1-44.9); Hemoglobin 10.3 g/dl (12.0-16.0); Mean Corpuscular Hemoglobin 26.3 pg (25.0-34.0); Mean Corpuscular Hgb Conc 31.4 g/dL (32.0-36.0); Mean Corpuscular Volume 83.7 fL (80.0-100.0); Mean Platelet Volume 10.2 fL (9.4-12.3); Platelet Count 136 K/uL (130-400); RDW Coefficient of Variation 15.3 % (11.5-14.5); RDW Standard Deviation 46.2 fL (36.4-46.3); Red Blood Count 3.92 M/uL (3.93-5.22); White Blood Count 7.96 K/ul (4.8-10.8)
[2022-02-12 05:53] LABS: BUN Creatinine Ratio 12.2 (10-20); Calcium 9.2 mg/dl (8.5-10.1); Creatinine Clr Calc Pharmacy 83.9 ml/min; Est GFR (African American) 73.2 ml/min; Est GFR (Non-African American) 63.1 ml/min; Potassium 4.4 mmol/L (3.5-5.1)
[2022-02-12] MEDS: METOPROLOL SUCC 25MG EXT REL TAB PO SCH (08:20)
[2022-02-12] MEDS: LEVOTHYROXINE SODIUM 100 MCG TABLET PO SCH (08:21)
[2022-02-12] MEDS: RIVAROXABAN 15 MG TAB PO SCH ×2 (08:21→20:33)
[2022-02-12] MEDS: FENOFIBRATE NANOCRYSTALLIZED 145 MG TABLET PO SCH (08:21)
[2022-02-12] MEDS: INSULIN ASPART PER UNIT SC SCH ×4 (08:27→20:50)
[2022-02-12] MEDS: LANTUS PER UNIT CHARGE SQ SCH ×2 (08:28→20:51)
[2022-02-12] MEDS ORDERED: Nursing to Pharmacy Communication SCH ×2 (10:45→14:45)
[2022-02-12] MEDS: SODIUM CHLORIDE 0.9% 1000ML 1,000 ML IV SCH (10:46)
--- NOTE | 2022-02-12 14:36 | Hospitalist Progress Note ---
Date of Service February 12, 2022 Assessment & Plan (1) Pulmonary emboli: Plan: Bilateral pulmonary emboli found on chest CTA producing transient hypotension resolved with IV fluids. Probable source is left lower extremity DVT. Currently on heparin drip which we will continue for 48 hours then switch to Xarelto therapy indefinitely. If she becomes hemodynamically unstable, she may need thrombolytic therapy. Did have prior LLE VTE in the past. Patient started on Xarelto on transition from IV heparin If patient continues to remain stable in the next 24 hours can be DC'd on Xarelto Discussed with case management and they given the starter pack to the patient to start Xarelto at home (2) Type 2 diabetes mellitus, controlled: Plan: Fairly well controlled with last TofJ1R=7.3 on 09/01/21. Patient is on tirzepatide, Metformin, Liraglutide and insulin (NPH, Novolog and Degludec) as an outpatient. Currently on Lantus 45u BID, ISS. ADA diet (3) Hypothyroidism: Plan: Chronic. Stable. Last TSH 09/01/21 = 2.674. Continue Synthroid 100mcg po daily (4) HTN (hypertension): Plan: Patient with low blood pressure on arrival, 93/76. Resolved with IV fluids. Held antihypertensives on admission , Metoprolol and Losartan. Metoprolol restarted today, February 09 (5) Dyslipidemia: Plan: Chronic. Continue Crestor, Fenofibrate (6) Acute respiratory failure with hypoxia: Plan: Due to bilateral acute pulmonary emboli. Oxygen per nasal cannula to maintain saturation greater than 90%. Wean off as tolerated. She may transiently need home oxygen however (7) Hypotension: Plan: Present on admission. 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 Currently on heparin drip for 48 hours. Then switch to Xarelto which she was on in the past Plan Eventual discharge to home Admission and Anticipated Discharge Date Admission Date: February 08, 2022 Subjective Patient switched from IV heparin to Xarelto Denies any chest pain report Patient reports feelings slight fatigue today but no increasing shortness of breath Review of Systems Review of Systems: Constitutional-no fever or chills ENT-no blurred vision, no double vision, no epistaxis, no sore throat Respiratory-no cough, no wheezing. No shortness of breath at rest. She is short of breath with minimal exertion Cardiac-no palpitations, no chest pain, no syncope GI-no nausea, vomiting, diarrhea, melena, hematochezia -no urinary retention, no urinary incontinence, no dysuria, no hematuria Musculoskeletal-no joint pain, no muscle tenderness. She has noticed increased swelling in the left lower extremity lately Physical Exam Physical Exam: Neck no JVD Cardiovascular S1-S2 normal no S3 no rubs Lungs bilateral air entry fair no wheezing Abdomen soft no rebound tenderness Extremity shows trace edema Results & Data Results & Data ([facility]) Vital Signs (Past 12 Hours) Vital Signs Temp Pulse Pulse Pulse Resp BP BP 02/12/22 12:21 36.6 C 66 20 180/78 H 157/83 H 02/12/22 08:01 66 02/12/22 07:43 02/12/22 07:14 36.7 C 72 18 174/82 H 02/12/22 03:45 36.5 C 92 H 69 18 134/55 L Pulse Ox O2 Del Method 02/12/22 12:21 95 Room Air 02/12/22 08:01 02/12/22 07:43 Room Air 02/12/22 07:14 97 Room Air 02/12/22 03:45 93 Room Air Laboratory Results Short CBC 02/12/22 Range/Units 04:41 WBC 7.96 (4.8-10.8) K/ul Hgb 10.3 L (12.0-16.0) g/dl Hct 32.8 L (34.1-44.9) % Plt Count 136 (130-400) K/uL BMP 02/12/22 04:41 Sodium 139 Potassium 4.4 Chloride 109 H Carbon Dioxide 25 BUN 12 Creatinine 0.98 Glucose 85 Calcium 9.2 PG Care Time/CCT Total # of Minutes Spent Total Time Spent with Patient: Total time spent is greater than 50% in coordination of care (as documented) at patient's floor/unit and/or counseling patient: Coding Level of Care Code 16873 Subseq Hosp Care Lvl 2 Diagnoses Pulmonary emboli I26.99 Type 2 diabetes mellitus, controlled E11.9 Hypothyroidism E03.9 HTN (hypertension) I10 Dyslipidemia E78.5 Acute respiratory failure with hypoxia J96.01 Hypotension I95.9 DVT of leg (deep venous thrombosis) I82.409
[2022-02-12] MEDS ORDERED: hydrALAZINE TAB 50 MG TAB PO ONE (17:21)
[2022-02-12] MEDS: ROSUVASTATIN CALCIUM 5 MG TAB PO SCH (20:32)
[2022-02-12] MEDS: ESCITALOPRAM OXALATE 10 MG TAB PO SCH (20:33)
[2022-02-12] MEDS: ASPIRIN 81 MG ECTAB PO SCH (21:09)
[2022-02-13] MEDS ORDERED: LEVOTHYROXINE SODIUM 100 MCG TABLET PO SCH (06:30)
[2022-02-13 07:53] LABS: Hematocrit (blood only) 34.2 % (34.1-44.9); Mean Corpuscular Hemoglobin 26.6 pg (25.0-34.0); Mean Corpuscular Hgb Conc 32.2 g/dL (32.0-36.0); Mean Corpuscular Volume 82.8 fL (80.0-100.0); Mean Platelet Volume 9.7 fL (9.4-12.3); Platelet Count 165 K/uL (130-400); RDW Coefficient of Variation 15.1 % (11.5-14.5); RDW Standard Deviation 45.4 fL (36.4-46.3); Red Blood Count 4.13 M/uL (3.93-5.22); White Blood Count 7.59 K/ul (4.8-10.8)
[2022-02-13 08:23] LABS: BUN Creatinine Ratio 13.3 (10-20); Calcium 9.8 mg/dl (8.5-10.1); Creatinine Clr Calc Pharmacy 77.3 ml/min; Est GFR (African American) 67.3 ml/min; Est GFR (Non-African American) 58.1 ml/min; Potassium 4.3 mmol/L (3.5-5.1)
[2022-02-13] MEDS: FENOFIBRATE NANOCRYSTALLIZED 145 MG TABLET PO SCH (09:04)
[2022-02-13] MEDS: LANTUS PER UNIT CHARGE SQ SCH (09:04)
[2022-02-13] MEDS: INSULIN ASPART PER UNIT SC SCH ×2 (09:04→12:32)
[2022-02-13] MEDS: METOPROLOL SUCC 25MG EXT REL TAB PO SCH (09:05)
[2022-02-13] MEDS: RIVAROXABAN 15 MG TAB PO SCH (09:05)
--- NOTE | 2022-02-13 17:21 | Discharge Summary ---
Date of Service February 13, 2022 Admission HPI Per Admitting Provider April Maldonado is a pleasant 61yo female with history of DM, HTN, HLP and prior LLE VTE (?unprovoked) presents with bilateral PE. She reports feeling some mild dyspnea on exertion for several months. Appx 2 months ago she had an episode where she got very short of breath while in the kitchen, passed out and woke up on the kitchen floor. She recently had some mild trauma to her LLE after dropping something on her leg. She did develop some swelling and phlebitis which was treated conservatively. She has been having flu-like symptoms for the las several days as well to include cough productive for yellow sputum, elevated temperature, chills as well as nausea and diarrhea. Her had similar symptoms one week ago which were self limiting. She has been having progressive WOLF. Last night around 20 :00 she felt very ill and developed more shortness of breath and chest discomfort while in the shower. This prompted her to come to the ER. Upon arrival she was afebrile, tachycardic at 116, BP 93/76, saturation 84% on room air. She was administered maintenance fluids at 125mL/hr. CTA demonstrated bilateral PEs with right heart strain. Patient did have a prior LLE DVT years ago. Uncertain if it was provoked. ER Course: Heparin gtt, Tylenol, NSS Principal Diagnosis Pulmonary embolism Discharge Exam Gen: NAD CV: RRR Resp: CTA b/l Discharge Data Allergies Allergy/AdvReac Type Severity Reaction Status Date / Time latex Allergy Intermediate contact Verified 02/08/22 02:03 dermatitis Penicillins Allergy Mild Rash Verified 02/08/22 02:03 Consultations 02/08/22 06:06 ED Decision to Admit Stat Ordered Studies 02/08/22 03:33 CT angio chest PE protocol Urgent 02/08/22 08:08 US venous doppler LE Urgent Hospital Course (1) Pulmonary emboli: Bilateral pulmonary emboli found on chest CTA producing transient hypotension resolved with IV fluids. Probable source is left lower extremity DVT. Heparin gtt x 48 hours. BP returned to normal. Echo also showed some right heart strain, but patient breathing comfortably on room air prior to discharge. (2) Type 2 diabetes mellitus, controlled: Fairly well controlled with last RmsS8V=2.3 on 09/01/21. Patient is on tirzepatide, Metformin, Liraglutide and insulin (NPH, Novolog and Degludec) as an outpatient. - Discharged without any changes to home regimen. (3) Hypothyroidism: Chronic. Stable. Last TSH 09/01/21 = 2.674. Continue Synthroid 100mcg po daily (4) HTN (hypertension): Patient with low blood pressure on arrival, 93/76. Resolved with IV fluids. Held antihypertensives on admission , Metoprolol and Losartan. Metoprolol restarted on 02/09. Mildly hypertensive by discharge; resume home meds. (5) Dyslipidemia: Chronic. Continue Crestor, Fenofibrate (6) Acute respiratory failure with hypoxia: Due to bilateral acute pulmonary emboli. Weaned off O2 prior to discharge. (7) Hypotension: Present on admission. Resolved with IV fluid resuscitation. 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 Will need to have hypercoagulable work-up as outpatient, though patient will likely need lifelong anticoagulation regardless given this is her second event. Total Time Total Time Spent Total Time Spent (In Minutes): 35 Discharge Plan Discharge Items Patient Disposition: Home - Self-Care Reason For Visit: PULMONARY EMBOLI Discharge Diagnosis: Pulmonary emboli Activity: Resume your previous activity Non-emergency contact: Primary Care Provider Call non-emergency contact if: your pain is worsening Follow-up/Referrals: Teena Tracy MD [Primary Care Provider] - Diet: Carb Consistent or DM2 and Heart Healthy Addtl Attending Provider Instructions: Ms. Maldonado, You were admitted to the hospital with blood clots in the lungs called pulmonary embolism, along with a pretty large left blood clot in the leg. We had you on an IV blood thinner, and now we have you on a pill that will thin the blood. You will take this for at least 3 months, though with your history of an earlier clot, you may need to be on it indefinitely. You should see your PCP in the next week or two to be sure you are doing better. You will be on a blood thinner that is taken twice a day for 3 weeks, then daily with dinner after that. You will start taking the daily dose on March 06. Here is something very important! I sent the twice a day dosing AND the daily dosing to your pharmacy. We have had people get confused and take both at the same time which could be deadly. You will need to BE SURE to not take both of the medications at the same time. Also, I did stop your aspirin as this can cause an excess risk of bleeding. Speak with Dr. Eaton or Peyton May regarding recommendations on when/if to restart this. Please return to the hospital with any further (worsening) shortness of breath, chest pain, passing out, nausea, vomiting, or other issues. Pending Studies at Discharge: No Stand-Alone Forms: [facility], Smoking Cessation Medications and DC Order Prescriptions: New Xarelto 15 mg Tablet 15 mg PO BID Qty: 42 0RF Rx Instructions: After 3 weeks (on ), start the daily dosing. rivaroxaban 20 mg tablet 20 mg PO DAILY Qty: 9 0RF Rx Instructions: Take with evening meal. Do NOT start until March 06 (after done with 3 weeks of twice-a-day dosing). pantoprazole 40 mg tablet,delayed release (DR/EC) 40 mg PO DAILY Qty: 30 0RF Continued (DME) Dexcom G6 Transmitter Device See Rx Instructions .ROUTE .MEDSUPPLY Qty: 1 3RF Rx Instructions: Change transmitter every 90 days rosuvastatin 5 mg tablet 5 mg PO HS Qty: 90 3RF (DME) Dexcom G6 Sensor Device See Rx Instructions .ROUTE .MEDSUPPLY Qty: 3 11RF Rx Instructions: Use as directed for continuous glucose monitoring - Change sensor every 10 days Tresiba FlexTouch U-200 200 unit/mL (3 mL) insulin pen 90 unit SQ HS Qty: 18 5RF (DME) pen needle, diabetic [BD Ultra-Fine Jessi Pen Needle] 32 gauge x 5/32" needle See Rx Instructions [id number] .MEDSUPPLY Qty: 200 6RF Rx Instructions: use with insulin and Victoza, 6 needles daily fenofibrate nanocrystallized 145 mg tablet 145 mg PO DAILY Qty: 90 1RF levothyroxine 100 mcg tablet 100 mcg PO DAILY Qty: 30 5RF Rx Instructions: Take 1st thing in AM, on empty stomach; half an hour before any other intake Novolin N Flexpen 100 unit/mL (3 mL) insulin pen 30 unit subcut QAM 30 Days Qty: 15 3RF (DME) lancets [Accu-Chek Fastclix Lancet Drum] Misc See Rx Instructions .ROUTE .MEDSUPPLY Qty: 102 3RF Rx Instructions: Test blood sugar once daily Victoza 2-Marshal 0.6 mg/0.1 mL (18 mg/3 mL) pen injector 1.2 mg subcut DAILY Qty: 6 1RF Rx Instructions: may increase to 1.2mg as tolerated metformin 500 mg tablet extended release 24 hr 1,000 mg PO BID Qty: 180 0RF escitalopram oxalate 10 mg tablet 10 mg PO HS (DME) Dexcom G6 Laser Print Operator Misc See Rx Instructions .ROUTE .MEDSUPPLY Qty: 1 0RF Rx Instructions: For use with Dexcom G6 transmitter and sensors metoprolol succinate 25 mg capsule,sprinkle,ER 24hr 25 mg PO DAILY losartan 100 mg tablet 100 mg PO DAILY Qty: 30 3RF Rx Instructions: Take one tablet once daily by mouth. (DME) Accu-Chek Guide test strips Strip See Rx Instructions .ROUTE .MEDSUPPLY Qty: 100 2RF Rx Instructions: check blood sugars 1 times a day Mounjaro 2.5 mg/0.5 mL pen injector 2.5 mg subcut WK 0RF cyanocobalamin (vitamin B-12) [Vitamin B-12] 1,000 mcg Tablet 1,000 mcg PO QAM insulin aspart U-100 [Novolog Flexpen U-100 Insulin] 100 unit/mL (3 mL) insulin pen 100 unit SQ DIRECTED Rx Instructions: 30 units with breakfast and lunch, 55 units with dinner, adjust as needed up to 100 units daily Discontinued aspirin 81 mg tablet,delayed release (DR/EC) 81 mg PO HS Discharge Orders: Discharge Order (Routine); Ordered 02/13/22 Ordered By: Miki Boone/Other Patient Handouts: Pulmonary Embolism, Managing Type 2 Diabetes, Special Foot Care for Diabetes Admission Data Admit Date/Time: 02/08/22 06:23 Attending Provider: Miki Whyte Admit Provider: Ember Edwards Primary Care Provider: Teena Tracy Other Providers: Ember Edwards Other Interventions: Discharge Summary Assessment (RN) Last Done: 02/13/22 13:08 Coding Level of Care Code D/C DAY MANAGEMENT >30 MINS Diagnoses Pulmonary emboli I26.99 Type 2 diabetes mellitus, controlled E11.9 Hypothyroidism E03.9 HTN (hypertension) I10 Dyslipidemia E78.5 Acute respiratory failure with hypoxia J96.01 Hypotension I95.9 DVT of leg (deep venous thrombosis) I82.409
[2022-03-05] MEDS ORDERED: RIVAROXABAN 20 MG TAB PO SCH (16:30)
== END 2022-02-13 14:14 | disposition home or self-care (01) | DRG 299 ==
LOC: ED 23:17 → SUATTDRO 02-08 06:23 → EDINP 02-08 06:23 → 4W 02-08 08:07